=== PATIENT | male | born 1965 | race Caucasian/White ===

== ENCOUNTER 2018-10-03 14:51 | Emergency (ER) | payer MEDICARE ==
[~2018-10-03] VITALS: Ht 165.1 cm; Wt 75.0 kg
[~2018-10-03 14:51] MED LIST: CLIN-96 PO; DIVA-76 PO; DIVA-81 PO; LORA10TA65 PO; TRAZ-91 PO
[2018-10-03 15:10] VITALS: BP 130/79
[2018-10-03] MEDS ORDERED: ONDA4TAB6 PO (15:15)
[2018-10-03] MEDS ORDERED: CLIN150C2 PO (15:17)
[2018-10-03] MEDS ORDERED: HYDR-3965 PO (15:17)
[2018-10-03] MEDS ORDERED: ondansetron 4mg rapidly disintigrating tab PO ONE (15:25)
[2018-10-03] MEDS ORDERED: HYDROcodone/acetaminophen 10/325mg tab PO ONE (15:25)
== END 2018-10-03 15:46 | disposition home or self-care (01) ==
LOC: ER 14:52
DX: K04.7 Periapical abscess without sinus (principal); K00.7 Teething syndrome; J44.9 Chronic obstructive pulmonary disease, unspecified; G89.29 Other chronic pain; M54.9 Dorsalgia, unspecified; Z59.0 Homelessness; Z56.0 Unemployment, unspecified; Z88.6 Allergy status to analgesic agent; Z88.0 Allergy status to penicillin
CPT/HCPCS: 99283

== ENCOUNTER 2024-11-07 03:41 | Inpatient (IN) | payer MEDICAID, MEDICARE ==
[~2024-11-07] VITALS: Ht 165.1 cm; Wt 109.0 kg
[2024-11-07] VITALS (17 sets, daily range): BP systolic 140–170; BP diastolic 81–96; PULSE 67–89; RESP 1–19; TEMP 98.3–98.7; O2SAT 94–98
[~2024-11-07 03:41] MED LIST changes: -CLIN-96 PO; +CLIN-97 PO; +ONDA4TAB6 PO
--- NOTE | 2024-11-07 03:48 | Physician Documentation ---
History of Present Illness ~ Stated Complaint: SOB Time Seen by MD: 03:48 Primary Medical Doctor: Paige Yee Patient presents to the emergency room with shortness of breath. Patient states it has been gradually increasing to the point were he was completely out of breath just walking to go to the bathroom. No fevers. Has been using his inhaler with limited relief. Patient endorses methamphetamine abuse Medication Reconciliation Allergies: Coded Allergies: Penicillins (Verified Allergy, Severe, 02/01/13) aspirin (Verified Allergy, Mild, 02/20/15) Uncoded Allergies: sunflower seeds (Allergy, Intermediate, develops a rash, 09/22/12) Scheduled Clindamycin HCL* (Clindamycin HCL*), 1 CAP PO Q6H Divalproex Sodium DR* (Depakote DR*), 1,000 MG PO BID Divalproex Sodium ER* (Depakote ER*), 1,000 MG PO BID, (Reported) Loratadine (Claritin), 10 MG PO DAILY, (Reported) Trazodone Hcl* (Trazodone Hcl*), 100 MG PO HS, (Reported) Scheduled PRN Ondansetron Hcl (Zofran), 1 TAB PO Q6H PRN for nausea/vomiting Past Medical History Past Medical History: Seizures, Asthma, COPD, Chronic Back Pain Past Surgical History: other Other Past Surgical History: Hemmorhoid Alcohol Use: Occasionally Drug Use: methamphetamine Lives with: Family Lives In: Homeless Occupation: unemployed Review of Systems ROS All review of systems negative except as per HPI Physical Exam General Appearance General: Patient is awake, alert, oriented x4 in no acute distress Head: Normocephalic and atraumatic. Eyes: Conjunctival normal. EOMI. PERRL. ENT: Mucous membranes moist. Neck: Supple, trachea is midline. Chest: Clear to auscultation bilaterally without rales, rhonchi, with mild whee zing. There is no accessory muscle use or retractions. Cardiac: RRR without murmurs, gallops, or rubs. Progress Results/Orders Results/Orders Orders - KYE DE LEON MD Electrocardiogram (11/07/24 03:50) Chest,Single View (11/07/24 04:00) Monitor (11/07/24 03:50) Covid19 Binax Poc Result Entry (11/07/24 04:36) Ct Chest (11/07/24 04:45) Furosemide Inj (Lasix Inj) (11/07/24 05:45) Page Hospitalist (11/07/24 05:44) Fill Out Med Reconciliation (11/07/24 05:44) Completed Orders - KYE DE LEON MD Cbc/Diff (11/07/24 03:50) Chest,Single View (11/07/24 04:00) Methylprednisolone Sod Succ (Solumedrol (11/07/24 03:50) Hs Troponin I W Calculations (11/07/24 03:50) PBNP (11/07/24 03:50) BMP (11/07/24 03:50) Man Diff (11/07/24 04:00) Procalcitonin (11/07/24 04:36) Ct Chest (11/07/24 04:45) Medications Received in ER Medications (Trade) Dose Ordered Sig/[place] Route PRN Reason Start Time Stop Time Status Last Admin Dose Admin (SoluMEDROL 125mg inj) 125 mg ONCE ONCE IV 11/07/24 03:50 11/07/24 03:51 DC 11/07/24 04:12 125 MG Vital Signs 11/07/24 11/07/24 03:42 03:50 Temp 98.4 98.4 Pulse 90 90 Resp 17 17 B/P (MAP) 187/103 187/103 (131) Pulse Ox 99 99 O2 Flow Rate 0 0 Laboratory Tests Test 11/07/24 04:00 White Blood Count 11.9 H Red Blood Count 4.17 L Hemoglobin 12.0 L Hematocrit 36.3 L Mean Corpuscular Volume 87.0 Mean Corpuscular Hemoglobin 28.7 Mean Corpuscular Hemoglobin Concent 33.0 Red Cell Distribution Width 14.1 Platelet Count 451 H Mean Platelet Volume 6.4 L Neutrophils (%) (Auto) 65.3 Lymphocytes (%) (Auto) 15.8 L Monocytes (%) (Auto) 15.5 H Eosinophils (%) (Auto) 3.1 Basophils (%) (Auto) 0.3 Neutrophils # (Auto) 7.8 H Lymphocytes # (Auto) 1.9 Monocytes # (Auto) 1.8 H Eosinophils # (Auto) 0.4 Basophils # (Auto) 0.0 CBC Comment Differential Total Cells Counted 100 Neutrophils % (Manual) 69.0 Lymphocytes % (Manual) 15.0 L Monocytes % (Manual) 10.0 Eosinophils % (Manual) 6.0 Platelet Estimate Normal Red Blood Cell Morphology Normal Basophilic Stippling Sodium Level 141 Potassium Level 4.6 Chloride Level 108 H Carbon Dioxide Level 25.7 Anion Gap 7 L Blood Urea Nitrogen 72 H Creatinine 2.81 H Estimated GFR/1.73 m2 23 BUN/Creatinine Ratio 25.6 H Glucose Level 137 H Calcium Level 7.9 L Troponin I High Sensitivity 19 Pro-B-Type Natriuretic Peptide 7479 H Albumin 2.5 L Procalcitonin 0.19 Chemistry Comments EKG/XRAY/CT/US/VASC/MRI EKG : Additional Comment EKG interpreted by myself she was time of 0357, rate 85, sinus rhythm, normal axis, prolonged MA interval, nonspecific ST changes Chest X-Ray : Additional Comments Exam: CHEST,SINGLE VIEW CHEST RADIOGRAPH Indication: SOB Technique: Single frontal view of the chest was obtained Comparison: None FINDINGS: Lines and Tubes: None Lungs: Hazy bilateral opacities which may reflect pulmonary edema or pneumonia. Pleura: No effusion. No pneumothorax. Cardiomediastinal contours: Unremarkable Bones: No acute osseous abnormality. IMPRESSION: 1. Hazy bilateral pulmonary opacities which may reflect pulmonary edema or pneumonia. : Impression Exam: CT CHEST EXAM: CT Chest Without Intravenous Contrast CLINICAL INDICATION: sob TECHNIQUE: Axial computed tomography images of the chest without intravenous contrast. This CT exam was performed using one or more of the following dose reduction techniques: automated exposure control, adjustment of the mA and/or kV according to patient size, and/or use of iterative reconstruction technique. CONTRAST: COMPARISON: None FINDINGS: LUNGS AND PLEURAL SPACES: Bilateral pleural effusions, greater on the right. Lung emphysema / COPD. No consolidation. No pneumothorax. HEART: Unremarkable. No cardiomegaly. No significant pericardial effusion. No significant coronary artery calcifications. MEDIASTINUM: A few prominent mediastinal lymph nodes measuring up to 6 mm. BONES/JOINTS: Unremarkable. No acute fracture. No dislocation. SOFT TISSUES: Unremarkable. VASCULATURE: Unremarkable. No thoracic aortic aneurysm. LYMPH NODES: See above. LIVER: Fatty liver. OTHER FINDINGS: . IMPRESSION: Bilateral pleural effusions, greater on the right. Lung emphysema / COPD. Medical Decision Making Findings Patient presented to the emergency room with chief complaint of shortness of breath. Differentials include but are not limited to COPD exacerbation, pneumonia, CHF, pneumothorax therefore emergent labs and imaging indicated. Discrepancy between possible pneumonia versus CHF therefore CT scan performed which he was not show any pneumonia. Lasix initiated. New diagnosis of CHF Departure Admitted to Inpatient Unit: yes, to hospitalist Impression: Primary Impression: New onset of congestive heart failure Condition: Guarded Referrals: NO PRIMARY CARE PROVIDER (PCP) Signature Scribe Signature: No scribe Attestation: The note accurately reflects work and decisions made by me.Kye De Leon MD 11/07/24 05:49 KYE DE LEON MD Nov 07, 2024 03:48
[2024-11-07] MEDS: methylPREDNISolone sod succ 125mg/2ml vial IV ONE (04:12)
[2024-11-07 04:13] LABS: BASOPHILS % (AUTO) 0.3 % (0-1); EOSINOPHILS # (AUTO) 0.4 X10'3 (0-0.9); EOSINOPHILS % (AUTO) 3.1 % (0-6); HEMATOCRIT 36.3 % (42.0-52.0); LYMPHOCYTES # (AUTO) 1.9 X10'3 (1.1-4.8); LYMPHOCYTES % (AUTO) 15.8 % (21-51); MEAN CORPUSCULAR HEMOGLOBIN 28.7 PG (27.0-31.0); MEAN PLATELET VOLUME 6.4 FL (7.4-10.4); MONOCYTES # (AUTO) 1.8 X10'3 (0-0.9); MONOCYTES % (AUTO) 15.5 % (2-12); NEUTROPHILS # (AUTO) 7.8 X10'3 (1.8-7.7); NEUTROPHILS % (AUTO) 65.3 % (42-75); PLATELET COUNT 451 X10'3 (140-440); RED BLOOD COUNT 4.17 X10'6 (4.70-6.10); RED CELL DISTRIBUTION WIDTH 14.1 % (11.5-14.5); WHITE BLOOD COUNT 11.9 X10'3 (4.5-11.0)
[2024-11-07 04:34] LABS: ALBUMIN 2.5 G/DL (3.4-5.0); ANION GAP 7 (8-16); BLOOD UREA NITROGEN 72 MG/DL (7-18); BUN/CREATININE RATIO 25.6 (10.0-20.0); CALCIUM 7.9 MG/DL (8.5-10.1); CHLORIDE 108 MMOL/L (99-107); CREATININE 2.81 MG/DL (0.60-1.10); GLUCOSE 137 MG/DL (70-104); POTASSIUM 4.6 MMOL/L (3.5-5.1); PRO BRAIN NATRIURETIC PEPTIDE 7479 PG/ML (0-125); SODIUM 141 MMOL/L (135-145); TOTAL CARBON DIOXIDE 25.7 MMOL/L (24-32); eCRCL 24 ML/MIN; eGFR 23 ML/MIN
[2024-11-07 04:38] LABS: TOTAL CELLS COUNTED 100
[2024-11-07 04:39] LABS: PLATELET ESTIMATE NORMAL
--- NOTE | 2024-11-07 04:41 | RADIOLOGY REPORT ---
CHEST RADIOGRAPH Indication: SOB Technique: Single frontal view of the chest was obtained Comparison: None FINDINGS: Lines and Tubes: None Lungs: Hazy bilateral opacities which may reflect pulmonary edema or pneumonia. Pleura: No effusion. No pneumothorax. Cardiomediastinal contours: Unremarkable Bones: No acute osseous abnormality. IMPRESSION: 1. Hazy bilateral pulmonary opacities which may reflect pulmonary edema or pneumonia.
--- NOTE | 2024-11-07 05:31 | RADIOLOGY REPORT ---
EXAM: CT Chest Without Intravenous Contrast CLINICAL INDICATION: sob TECHNIQUE: Axial computed tomography images of the chest without intravenous contrast. This CT exam was performed using one or more of the following dose reduction techniques: automated exposure cont rol, adjustment of the mA and/or kV according to patient size, and/or use of iterative reconstruction technique. CONTRAST: COMPARISON: None FINDINGS: LUNGS AND PLEURAL SPACES: Bilateral pleural effusions, greater on the right. Lung emphysema / COPD . No consolidation. No pneumothorax. HEART: Unremarkable. No cardiomegaly. No significant pericardial effusion. No significant lux ry artery calcifications. MEDIASTINUM: A few prominent mediastinal lymph nodes measuring up to 6 mm. BONES/JOINTS: Unremarkable. No acute fracture. No dislocation. SOFT TISSUES: Unremarkable. VASCULATURE: Unremarkable. No thoracic aortic aneurysm. LYMPH NODES: See above. LIVER: Fatty liver. OTHER FINDINGS: . IMPRESSION: Bilateral pleural effusions, greater on the right. Lung emphysema / COPD.
[2024-11-07] MEDS: furosemide 10 MG/1 ML 10ml inj IV ONE (05:52)
--- NOTE | 2024-11-07 07:26 | ELECTROCARDIOGRAPH REPORT ---
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 Thomas Orozco Measurements Intervals [place] Rate: 85 P: 207 WY: 242 QRS: 58 QRSD: 117 T: 30 QT: 369 QTc: 439 Interpretive Statements Sinus or ectopic atrial rhythm Prolonged [place] interval Consider left atrial enlargement Incomplete right bundle branch block Probable inferior infarct, acute ST elevation, consider anterolateral injury Baseline wander in lead(s) I,II,aVR,aVL,aVF Electronically Signed On 11-08-2024 9:27:[address] Thomas Orozco Please click the below link to view image of tracing.
[2024-11-07] MEDS: nitroGLYCERIN 0.4mg SUBLingual tab SL PRN (07:32)
[2024-11-07] MEDS ORDERED: acetaminophen 650mg rectal suppository RC PRN (07:40)
[2024-11-07] MEDS ORDERED: bisacodyl 10mg suppository rectal RC PRN (07:40)
[2024-11-07] MEDS ORDERED: ondansetron 4mg rapidly disintigrating tab PO PRN (07:40)
[2024-11-07] MEDS ORDERED: diphenhydrAMINE 50 mg/ml inj IV PRN (07:40)
[2024-11-07] MEDS ORDERED: diphenhydrAMINE 25mg capsule PO PRN (07:40)
[2024-11-07] MEDS ORDERED: metoclopramide 5 mg/ml inj IV PRN (07:40)
[2024-11-07] MEDS ORDERED: mag hydrox/Alum hydrox/simeth 30ml oral suspension PO PRN (07:40)
[2024-11-07] MEDS ORDERED: acetaminophen 325mg tablet PO PRN (07:40)
[2024-11-07] MEDS ORDERED: magnesium hydroxide 30ml (MOM) UD suspension PO PRN (07:40)
[2024-11-07] MEDS ORDERED: ondansetron/PF 4mg/2ml inj IV PRN (07:40)
[2024-11-07] MEDS ORDERED: morphine 2 MG/ML inj. syringe IV PRN (07:40)
[2024-11-07] MEDS: normal saline 1000ml 1,000 ML IV SCH (07:40)
[2024-11-07] MEDS ORDERED: CefTRIAXone/D5W-Rocephin 1gm 50 ML IV SCH (08:00)
[2024-11-07] MEDS: nitroGLYCERIN-Tridil 50MG/D5W 250 ML IV SCH ×2 (08:05→08:46)
[2024-11-07 08:25] LABS: BILIRUBIN,URINE NEGATIVE (Neg); CLARITY,URINE CLOUDY (Clear); COLOR,URINE YELLOW (Yellow); GLUCOSE, URINE NEGATIVE (Neg); KETONES,URINE NEGATIVE (Neg); LEUKOCYTE ESTERASE ,URINE MODERATE (Neg); OCCULT BLOOD,URINE LARGE (Neg); PROTEIN,URINE >=300 mg/dl (Neg); UROBILINOGEN,URINE 0.2 E.U/dL (0.2-1.0)
[2024-11-07 08:30] LABS: APTT 27 SECONDS (22-32); D-DIMER 3.68 MG/L FEU (0-0.50); INR 1.1 INR; PROTHROMBIN TIME 10.9 SECONDS (9.0-12.0)
[2024-11-07] MEDS: COMMUNICATION ORDER 1 EA MISC MC ONE (08:33)
[2024-11-07] MEDS: ipratropium/albuterol 3ml nebule IH PRN (08:35)
[2024-11-07 08:38] LABS: MAGNESIUM 2.7 MG/DL (1.5-2.4)
[2024-11-07 08:44] LABS: UA COLLECTION TYPE VOIDED
[2024-11-07] MEDS: docusate sod 100mg capsule PO SCH (08:44)
[2024-11-07] MEDS: heparin, porcine 5000 units/ml vial SQ SCH (08:44)
[2024-11-07] MEDS: azithromycin/NS 500mg/250ml 250 ML IV SCH (08:45)
[2024-11-07] MEDS: LORazepam 1 MG tablet PO SCH (08:45)
[2024-11-07 08:48] LABS: NITRITES, URINE NEGATIVE (Neg)
[2024-11-07 08:48] LABS: HEMOGLOBIN A1C 7.1 % (4.5-6.2)
[2024-11-07 08:49] LABS: BACTERIA,URINE 2+ /HPF (Neg); RBC,URINE TNTC /HPF (0-2); WBC,URINE TNTC /HPF (0-4)
[2024-11-07 08:56] LABS: SQUAMOUS EPITHELIAL CELL,UR NONE SEEN /LPF (FEW)
[2024-11-07] MEDS: furosemide 10 MG/1 ML 10ml inj IV SCH (09:09)
[2024-11-07] MEDS ORDERED: DEXTROSE 15 GM of carb/4 tabs (each vial/BOTTLE has 4 tablets) PO PRN ×2 (12:45)
[2024-11-07] MEDS ORDERED: glucagon, human recombinant 1mg kit SUBCUT PRN (12:45)
[2024-11-07] MEDS ORDERED: dextrose 50%-water 50ml dispensing syringe IV PRN ×2 (12:45)
--- NOTE | 2024-11-07 13:56 | HISTORY AND PHYSICAL ---
History & Physical Providers to CC ~ chief complaint, shortness of breath History of Present Illness Reason for Admit\\Complaint: As above History of Present Illness This is a 59 years old white male with history of multiple medical problems including seizure disorder COPD, hypoalbuminemia, chronic pain syndrome secondary to lumbar degenerative disc disease, history of homelessness, chronic kidney disease, diabetes mellitus type 2, chronic tobacco abuse including currently chronic amphetamine abuse including currently, history of hypertension poor control, CHF, morbid obesity BMI 40, multiple allergies, anemia hemoglobin 12, presented today to emergency department chief complaint shortness of breath, in addition Patient presents to the emergency room with shortness of breath. Patient states it has been gradually increasing to the point were he was completely out of breath just walking to go to the bathroom. No fevers. Has been using his inhaler with limited relief. Patient endorses methamphetamine abuse, in emergency department he was evaluated by physician was diagnosed with CHF in exacerbation, morbid obesity, hypoxia, and decision was made to admit patient for further evaluation and treatment, no additional complaint or concern. Allergies: Coded Allergies: Penicillins (Verified Allergy, Severe, PT STATES "WILL ", 11/07/24) aspirin (Verified Allergy, Mild, 02/20/15) Uncoded Allergies: sunflower seeds (Allergy, Intermediate, develops a rash, 09/22/12) Active prescriptions I reviewed reconciled Home Medications Home Medications Active Zofran (Ondansetron Hcl) 4 Mg Tablet 1 Tab PO Q6H PRN Clindamycin HCL* (Clindamycin HCl) 300 Mg Capsule 1 Cap PO Q6H Depakote DR* (Divalproex Sodium) 500 Mg Tablet.dr 1,000 Mg PO BID Reported Claritin (Loratadine) 10 Mg Tablet 10 Mg PO DAILY Trazodone Hcl* (Trazodone HCl) 100 Mg Tablet 100 Mg PO HS Past Medical History Past Medical History As in HPI Past Surgical History Surgical History Comment As in HPI Past Social History Social History Comment Positive for chronic tobacco amphetamine abuse including currently, deny alcohol use, has history of homelessness, Health Maintenance Health Maintenance Noncontributory ROS ROS Constitutional : no fever , no chills, or weakness. No diaphoresis. Allergic/Immunologic, no lymphadenopathy, no hives, no skin eruptions. Eyes, no recent visual changes, no eye pain, no photophobia. Ears, nose, mouth, throat, no sore throat, no nosebleed, no ear pain. Cardiovascular, no palpitations, skipped beats, chest pain, positive for bilateral lower extremity peripheral edema, Respiratory, has dyspnea, orthopnea, cough, no hemoptysis, chest wall pain. Gastrointestinal, no abdominal pain, nausea, vomiting, constipation or diarrhea. : no dysuria, hematuria, pelvic pain, urethral d/c. Endocrine, no polyuria, polydipsia, recent unintentional weight gain or loss. Hematologic/Lymphatic, no petechiae, no enlarged lymph nodes, no bone pain. Integumentary, no rash, no skin lesions, Musculoskeletal, no muscle aches, or pain, no muscle cramps, no recent change in gait Neurological, no dizziness, no headache, no syncope, no paresthesia. Psychiatric, no delusions, visual hallucinations, or hearing hallucinations. ROS - in rest is as in HPI. Exam Vitals: Vital Signs Date Time Temp Pulse Resp B/P (MAP) Pulse Ox O2 Delivery O2 Flow Rate FiO2 11/07/24 11:22 75 11/07/24 11:15 98.7 15 156/81 (106) 97 Nasal Cannula 2.5 11/07/24 10:09 28 Vital signs, stable ,afebrile. Pulse Oximetry reflects adequate oxygenation on 2 L oxygen nasal cannula. BMI is 40, weight 109 kg General: well developed, well nourished. Awake , alert, and oriented x4, resting comfortably in the bed, in no acute distress . Skin: Warm, dry, no pallor, no rash or petechiae. HEENT: Atraumatic, normocephalic, EOMI, anicteric sclera B; pink conjunctiva; PERRLA, normal oropharynx, moist oral and nasal mucosa. Tympanic membrane , nose , throat clear. Neck: Trachea midline. Supple, full range of motion, no JVD, bruit , hepatojugular reflex , lymphadenopathy or masses, or other lesions Cardiac: Regular rhythm, regular rate no murmurs, rubs, or gallops. Normal S1 and S2, no S3 noticed. PMI is normal. Respiratory: Equal breath sounds bilaterally, no tachypnea; lungs clear to auscultation bilaterally, ; positive for scattered bilateral wheezing , no rub or rales, or crackles. Chest wall is symmetric and without deformity. No signs of trauma. Chest wall is nontender. No signs of respiratory distress. Resonance is normal upon percussion bilaterally. Gastrointestinal: Abdomen symmetric, non-distended, soft, non-tender, normal bowel sounds x4 quadrant, normoactive, no hepatosplenomegaly , no masses , no bruit, no flank pain bilaterally. No voluntary guarding, rebound, or rigidity. No tenderness to percussion. No pulsatile masses. Equal femoral pulses. No Giraldo's sign or McBurney point tenderness. Back; no CVA tenderness bilaterally, no deformities. Neck and back are without deformity as well. No tenderness noted on palpation of the spinous processes. Spinous processes are midline. Cervical, thoracic, and lumbar paraspinal muscles are not tender and are without spasm. : normal external genitalia, without lesions, swelling, masses or tenderness. Musculoskeletal: Extremities, normal range of motion, non-tender, muscle strength 5/5 x 4. Negative Homans signs bilaterally on lower extremity. Distal pulses full symmetrical, no clubbing, cyanosis; positive for bilateral lower extremity plus four edema up to the thighs Neurological: Speech is clear, alert, and oriented x 4. No motor or sensory deficit, deep tendon reflexes normal, cerebellar intact. Cranial nerves II-XII intact. Psych: Alert and or appropriate, normal affect. Vascular: Good distal pulses, which are equal x4; capillary refill less than 2 seconds. Lymphatic, no lymphadenopathy. Diagnostic Data Last Recorded Lab Results: 11/07/24 0400 11/07/24 0400 Diagnostic Data: Laboratory Tests Test 11/07/24 08:00 Prothrombin Time 10.9 SECONDS (9.0-12.0) INR International Normalized Ratio 1.1 INR Activated Partial Thromboplast Time 27 SECONDS (22-32) D-Dimer 3.68 MG/L FEU (0-0.50) H D-Dimer Comment Coagulation Comments Advance Care Planning Advanced Care plannin - 30 Minutes Additional Plan Assessment Hypertensive emergency, blood pressure on admission 187 over 103 Chronic amphetamine abuse including currently Acute amphetamine intoxication Chronic CHF diastolic in exacerbation Acute respiratory failure secondary to hypoxia Bilateral pleural effusion right more than left Chronic tobacco abuse including currently Anemia hemoglobin 12 Multiple drug allergy Acute Renal failure COPD in exacerbation Chronic pain syndrome secondary to low back degenerative disc disease Diabetes mellitus type 2 poor control UTI Plan Serial troponin EKG IV Lasix, nitroglycerin infusion, steroids, antibiotics SVN Hannahb, incentive spirometry Oxygen support therapy Additional lab work pending Consulted for 5 minutes to stop using illicit drugs and tobacco patient agrees started to nicotine patch Echocardiography pending Hyperglycemia sliding scale V/Q test pending I reconciled home medications DVT gastropathy prophylaxis addressed Sepsis Screening Reassessment Date: Nov 07, 2024 Date of Service: Nov 07, 2024 Billing Provider: BE NIX MD Common Visit Codes: 52810-[id number] INP/OBS CARE (HIGH) Secondary Visit Codes: 15565-TDSAW CHNG SMOKING 3-10M, [id number] CARE PLAN 30 MINUTES BE NIX MD Nov 07, 2024 13:56
[2024-11-07 14:10] LABS: THYROID STIMULATING HORMONE 1.14 ulU/ml (0.34-4.50)
[2024-11-07 14:51] LABS: VALPROATE < 3.0 UG/ML (50-100)
[2024-11-07] MEDS ORDERED: ONDA-243 PO (15:13)
[2024-11-07] MEDS ORDERED: CLIN-97 PO (15:13)
[2024-11-07] MEDS ORDERED: DIVA-76 PO (15:13)
[2024-11-07] MEDS: ciprofloxacin 250mg tablet PO SCH (15:38)
[2024-11-07] MEDS: HYDROcodone/acetaminophen 5mg/325mg tablet PO PRN (15:54)
[2024-11-07] MEDS: INSULIN LISPRO 100 UNIT/ML INSULN.PEN MULTI-DOSE SQ SCH (17:28)
[2024-11-07] MEDS: morphine 2 MG/ML inj. syringe IV PRN (17:29)
--- NOTE | 2024-11-07 17:55 | RADIOLOGY REPORT ---
EXAM: NM NM LUNGS HISTORY: pe COMPARISON: None TECHNIQUE: Following the administration of the ventilation agent, standard projections of the lungs were acquired. The same images were repeated after administration of the perfusion agent. Findings: Ventilation images demonstrate homogenous distribution of radiotracer throughout both lungs. Perfusion images demonstrate homogeneous distribution of radiotracer throughout both lungs. No periph eral wedge-shaped moderate or large subsegmental or segmental mismatched perfusion defects to suggest acute pulmonary embolism. Impression: 1. Based on PIOPED criteria, low probability for pulmonary embolism.
--- NOTE | 2024-11-07 18:52 | CARDIOLOGY REPORT ---
APPROVED REPORT EXAM: Comprehensive 2D, Doppler, and color-flow Echocardiogram. 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 158.6 cm/s AoV VTI 31.7 cm AO Peak GR. 10.1 mmHg AO Mean GR. 5 mmHg LVOT VTI 27.08 cm LVOT Peak Donny. 142.9 cm/s BANDAR(VTI)/BSA 3.39 cm2/m2 BANDAR (VTI) 3.39 cm2 Mitral Valve MV E Velocity 111.2 cm/s MV Peak Gr. 6 mmHg MV DECEL TIME 162 ms MV A Velocity 93.0 cm/s MV PHT 48 ms E/A Ratio 1.2 MVA (PHT) 4.58 cm2 MV AAdn379.1 cm/s TDI Medial E' P. V 10.76 cm/s E/Medial E' 10.3 Tricuspid Valve TR P. Velocity 143 cm/s TR Peak Gr. 8 mmHg Pulmonary Vein S1 Velocity 100.9 cm/s D2 Velocity 68.5 cm/s PVa Wdelhkrd89.9 cm/s PVa [id number] msec LEFT VENTRICLE Mildly increased LV size with normal wall thickness. Overall systolic function is mildly reduced. LVE F is 50-55%. RIGHT VENTRICLE RV is mildly increased in size with adequate function. ATRIA Left atrium is moderately dilated. AORTIC VALVE Trileaflet AV appears mildly sclerotic without stenosis or insufficiency. MITRAL VALVE Mild MV annular calcification without stenosis. Mild regurgitation. TRICUSPID VALVE TV appears structurally normal with trace regurgitation. PULMONIC VALVE Normal PV without stenosis, physiologic insufficiency. GREAT VESSELS Aortic root is normal in size. Ascending aorta is normal in size. PERICARDIUM Normal pericardium. No effusion. Other Information Study Quality: Adequate, TDS arch. Conclusion Mildly increased LV size with normal wall thickness. Overall systolic function is mildly reduced. LVE F is 50-55%. RV is mildly increased in size with adequate function. Left atrium is moderately dilated. Trileaflet AV appears mildly sclerotic without stenosis or insufficiency. Mild MV annular calcification without stenosis. Mild regurgitation. TV appears structurally normal with trace regurgitation. Normal pericardium. No effusion.
[2024-11-07] MEDS: insulin glargine (Lantus) pen - multi-dose SQ SCH (20:28)
[2024-11-07] MEDS: HYDROcodone/acetaminophen 10/325mg tab PO PRN (20:46)
[2024-11-07] MEDS ORDERED: temazepam 15mg capsule PO PRN (21:00)
[2024-11-08] VITALS (19 sets, daily range): BP systolic 145–183; BP diastolic 80–107; PULSE 67–96; RESP 11–20; TEMP 97–98.9; O2SAT 91–98
[2024-11-08 06:34] LABS: ALANINE AMINOTRANSFERASE 37 U/L (12-78); ALBUMIN 2.2 G/DL (3.4-5.0); ALBUMIN/GLOBULIN RATIO 0.6 (1.1-1.5); ALKALINE PHOSPHATASE 98 IU/L (46-116); ANION GAP 7 (8-16); ASPARTATE AMINO TRANSFERASE 18 U/L (10-37); BILIRUBIN,TOTAL 0.3 MG/DL (0.1-1.0); BLOOD UREA NITROGEN 85 MG/DL (7-18); BUN/CREATININE RATIO 28.9 (10.0-20.0); CHLORIDE 106 MMOL/L (99-107); CHOL/HDL RATIO 4.2 (0.00-4.99); CHOLESTEROL 144 MG/DL (0-200); CREATININE 2.94 MG/DL (0.60-1.10); GLUCOSE 135 MG/DL (70-104); HDL CHOLESTEROL 34 MG/DL (35-60); LDL CHOLESTEROL 94 MG/DL (50-100); POTASSIUM 5.7 MMOL/L (3.5-5.1); SODIUM 137 MMOL/L (135-145); TOTAL CARBON DIOXIDE 24.5 MMOL/L (24-32); TOTAL PROTEIN 5.8 G/DL (6.4-8.2); TRIGLYCERIDES 94 MG/DL (20-135); eCRCL 23 ML/MIN; eGFR 22 ML/MIN
[2024-11-08 06:36] LABS: BASOPHILS % (AUTO) 0.1 % (0-1); EOSINOPHILS % (AUTO) 0 % (0-6); HEMATOCRIT 33.6 % (42.0-52.0); HEMOGLOBIN 10.8 g/dl (14.0-17.9); LYMPHOCYTES # (AUTO) 1.6 X10'3 (1.1-4.8); LYMPHOCYTES % (AUTO) 7.9 % (21-51); MEAN CORPUSCULAR HEMOGLOBIN 28.1 PG (27.0-31.0); MEAN CORPUSCULAR HGB CONC 32.3 g/dL (33.0-36.5); MEAN CORPUSCULAR VOLUME 86.9 FL (78-98); MEAN PLATELET VOLUME 6.8 FL (7.4-10.4); MONOCYTES # (AUTO) 1.9 X10'3 (0-0.9); NEUTROPHILS # (AUTO) 17.2 X10'3 (1.8-7.7); PLATELET COUNT 449 X10'3 (140-440); RED BLOOD COUNT 3.86 X10'6 (4.70-6.10); RED CELL DISTRIBUTION WIDTH 13.9 % (11.5-14.5); WHITE BLOOD COUNT 20.7 X10'3 (4.5-11.0)
[2024-11-08] MEDS: pantoprazole 40mg Tablet.DR PO SCH (07:23)
[2024-11-08] MEDS: nicotine 21mg patch - 24 hr TD SCH (07:24)
--- NOTE | 2024-11-08 17:08 | PROGRESS NOTE ---
Daily Progress Note Providers to CC Chief complaint, shortness of breath, bilateral lower extremity edema still present ~ Central Line/PICC still needed: No Zavaleta-Non Protocol Zavaleta Indications Met/Not Met: F/C Indications Not Met Antibiotic Timeout Antibiotic Ordered?: Yes MRSA Education MRSA Education Provided to pt: Yes Subjective As above Objective Vital Signs Date Time Temp Pulse Resp B/P (MAP) Pulse Ox O2 Delivery O2 Flow Rate FiO2 11/08/24 16:06 88 20 Nasal Cannula 3.0 11/08/24 15:58 94 32 11/08/24 05:00 161/82 (108) 11/08/24 02:00 98.1 Vital signs, stable ,afebrile. Pulse Oximetry reflects adequate oxygenation. General: well developed, well nourished. Awake , alert, and oriented x4, resting comfortably in the bed, in no acute distress . Skin: Warm, dry, no pallor, no rash or petechiae. HEENT: Atraumatic, normocephalic, EOMI, anicteric sclera B; pink conjunctiva; PERRLA, normal oropharynx, moist oral and nasal mucosa. Tympanic membrane , nose , throat clear. Neck: Trachea midline. Supple, full range of motion, no JVD, bruit , hepatojugular reflex , lymphadenopathy or masses, or other lesions Cardiac: Regular rhythm, regular rate no murmurs, rubs, or gallops. Normal S1 and S2, no S3 noticed. PMI is normal. Respiratory: Equal breath sounds bilaterally, no tachypnea; lungs clear to auscultation bilaterally, no wheezing ,rub or rales, or crackles. Chest wall is symmetric and without deformity. No signs of trauma. Chest wall is nontender. No signs of respiratory distress. Resonance is normal upon percussion bilaterally. Gastrointestinal: Abdomen symmetric, non-distended, soft, non-tender, normal bowel sounds x4 quadrant, normoactive, no hepatosplenomegaly , no masses , no bruit, no flank pain bilaterally. No voluntary guarding, rebound, or rigidity. No tenderness to percussion. No pulsatile masses. Equal femoral pulses. No Giraldo's sign or McBurney point tenderness. Back; no CVA tenderness bilaterally, no deformities. Neck and back are without deformity as well. No tenderness noted on palpation of the spinous processes. Spinous processes are midline. Cervical, thoracic, and lumbar paraspinal muscles are not tender and are without spasm. : normal external genitalia, without lesions, swelling, masses or tenderness. Musculoskeletal: Extremities, normal range of motion, non-tender, muscle strength 5/5 x 4. Negative Homans signs bilaterally on lower extremity. Distal pulses full symmetrical, no clubbing, cyanosis , bilateral lower extremity plus four edema up to the thigh Neurological: Speech is clear, alert, and oriented x 4. No motor or sensory deficit, deep tendon reflexes normal, cerebellar intact. Cranial nerves II-XII intact. Psych: Alert and or appropriate, normal affect. Vascular: Good distal pulses, which are equal x4; capillary refill less than 2 seconds. Lymphatic, no lymphadenopathy. Result Diagram: 11/08/24 0557 11/08/24 0557 Coagulation Studies Laboratory Tests Test 11/07/24 08:00 Prothrombin Time 10.9 SECONDS (9.0-12.0) INR International Normalized Ratio 1.1 INR Activated Partial Thromboplast Time 27 SECONDS (22-32) D-Dimer 3.68 MG/L FEU (0-0.50) H D-Dimer Comment Coagulation Comments Problem\Assessment\Plan Assessment Hypertensive emergency, blood pressure on admission 187 over 103 Hyperkalemia Chronic amphetamine abuse including currently Acute amphetamine intoxication Chronic CHF diastolic in exacerbation ejection fraction 52% Acute respiratory failure secondary to hypoxia Bilateral pleural effusion right more than left Chronic tobacco abuse including currently Anemia hemoglobin 12 Multiple drug allergy Acute Renal failure COPD in exacerbation Chronic pain syndrome secondary to low back degenerative disc disease Diabetes mellitus type 2 poor control UTI Plan Serial troponin EKG IV Lasix, nitroglycerin infusion, steroids, antibiotics SVN DuoNeb, incentive spirometry Oxygen support therapy Additional lab work pending Correct electrolytes Consulted for 5 minutes to stop using illicit drugs and tobacco patient agrees started to nicotine patch Echocardiography completed Hyperglycemia sliding scale V/Q test completed I reconciled home medications DVT gastropathy prophylaxis addressed Sepsis Screening Reassessment Date: Nov 08, 2024 Date of Service: Nov 08, 2024 Billing Provider: BE NIX MD Common Visit Codes: [id number] INP/OBS CARE(HIGH) BE NIX MD Nov 08, 2024 17:08
[2024-11-08] MEDS ORDERED: CALCIUM GLUC 1gm/50ml NACL,iso 50 ML IV PRN (17:10)
[2024-11-08] MEDS: JUVEN Shake w/Arg/Glut/Ca2+Bmb (Juven 19.3gm) pkt 240ml PO SCH (17:30)
[2024-11-08] MEDS: sodium polystyrene sulfonate 15gm/60ml oral suspension PO ONE (18:38)
[2024-11-08] MEDS: sodium bicarbonate (8.4%) 1 mEq/ml syringe IV ONE (18:39)
[2024-11-08] MEDS: dextrose 50%-water 50ml dispensing syringe IV ONE (18:39)
[2024-11-08] MEDS: insulin regular, human 10 units/0.1 ml syringe IV ONE (18:40)
[2024-11-08] MEDS: SODIUM ZIRCONIUM CYCLOSILICATE 10 GM POWD.PACK PO ONE (18:42)
--- NOTE | 2024-11-08 19:46 | RADIOLOGY REPORT ---
Clinical History sepsis Comparison None Technique: All CT scans at this medical facility are performed using dose modulation techniques as appropriate t o a performed exam including the following: Automated exposure control was utilized; adjustment of th e mA and/or kV according to patient size; and use of iterative reconstruction technique. All CT studies are reported to the Dose Index Registry of the [employer]. Without Contrast Radiation Dose: CTDI (mGy): 36.52; DLP (mGy-cm): 1749.61 SHANNON BACH, [id number] TECHNIQUE: Contiguous axial CT images of the abdomen and pelvis were obtained from the domes of the diaphragm to the level of the pubic symphysis. Coronal and sagittal reformatted images were generated. FINDINGS: LUNG BASES: There is small bilateral pleural effusions with adjacent compressive atelectasis. Septal thickening seen at the lung bases. HEPATOBILIARY: Unenhanced liver is unremarkable. Gallbladder is contracted. SPLEEN: Unremarkable. PANCREAS: Unremarkable. ADRENAL GLANDS: Unremarkable. KIDNEYS: No hydronephrosis or obstructive uropathy. PERITONEUM/MESENTERY/BOWEL: No evidence of bowel obstruction. No bowel wall thickening or inflammato ry changes. No ascites. No free air. Normal appendix. Scattered colonic diverticulosis without ev idence of diverticulitis. ABDOMINOPELVIC NODES: No adenopathy. PELVIC ORGANS: Decompressed bladder appear unremarkable prostate. ABDOMINAL AORTA: Atherosclerosis. No aneurysm. BONES: No suspicious osseous lesions. Degenerative changes of the lower lumbar spine. SOFT TISSUES: Unremarkable. OTHER: None. IMPRESSION: Normal appendix. Scattered colonic diverticulosis without evidence of diverticulitis. Small bilateral pleural effusions with adjacent compressive atelectasis. Septal thickening seen at t he lung bases. This report was electronically signed by Stevenson Haywood MD on 11/08/2024 7:44:09 PM.
[2024-11-08] MEDS: vancomycin/NS 1 GM ADD-VANTAGE 250 ML IV SCH (20:53)
[2024-11-08] MEDS: labetalol 20mg/4ml (5mg/ml) syringe IV PRN (23:42)
[2024-11-08 23:43] LABS: ABG BASE EXCESS -3.4 mmol/L (-2.0-3.0); ABG HCO3 22.5 mmol/L (21.0-28.0); ABG OXYGEN SATURATION 95.6 % (94.0-98.0); ABG PCO2 (T) 45.7 mmHg (35.0-48.0); ABG PH (T) 7.315 (7.350-7.450); ABG PO2 (T) 83.5 mmHg (83.0-108.0); ALLEN'S TEST POSITIVE; FCOHb 0.5 % (0.5-1.5); FHHb 4.4 % (0.0-5.0); FMetHb 0.3 % (0.0-1.5); FO2Hb 94.8 % (94.0-98.0); MODE NASAL CANNULA; PATIENT TEMPERATURE 37.8; RESPIRATORY RATE 20 b/min; TOTAL HEMOGLOBIN 11.9 G/dl (13.5-17.5)
[2024-11-09] VITALS (19 sets, daily range): BP systolic 138–192; BP diastolic 70–108; PULSE 77–100; RESP 12–32; TEMP 97.1–98.5; O2SAT 92–100
[2024-11-09] MEDS: furosemide 20 MG/2 ML vial IV SCH
--- NOTE | 2024-11-09 00:44 | RADIOLOGY REPORT ---
Clinical History sob Comparison CT CHEST, CXR on 11/07/2024, 2 images. Technique: A single AP/PA chest radiograph was provided for review. Without Contrast SHANNON BACH, [id number] FINDINGS: Lungs: Hypoexpanded lungs without pneumothorax. There is no significant pleural effusion. Heart: Enlarged. Mediastinum: Within normal limits. Vasculature: Pulmonary edema. Tubes/lines: None. Osseous structures: No evidence for acute fracture. IMPRESSION: Low lung volumes. Cardiomegaly. Pulmonary edema. This report was electronically signed by Bob Fontaine MD on 11/09/2024 12:41:51 AM.
[2024-11-09] MEDS: losartan 25mg tablet PO ONE (01:15)
[2024-11-09] MEDS: labetalol 20mg/4ml (5mg/ml) syringe IV ONE (06:08)
[2024-11-09 06:38] LABS: BASOPHILS % (AUTO) 0.1 % (0-1); EOSINOPHILS # (AUTO) 0.2 X10'3 (0-0.9); HEMATOCRIT 34.2 % (42.0-52.0); HEMOGLOBIN 11.3 g/dl (14.0-17.9); LYMPHOCYTES # (AUTO) 2.2 X10'3 (1.1-4.8); LYMPHOCYTES % (AUTO) 13.8 % (21-51); MEAN CORPUSCULAR HEMOGLOBIN 28.7 PG (27.0-31.0); MEAN PLATELET VOLUME 6.5 FL (7.4-10.4); MONOCYTES % (AUTO) 13.1 % (2-12); NEUTROPHILS # (AUTO) 11.3 X10'3 (1.8-7.7); PLATELET COUNT 473 X10'3 (140-440); RED BLOOD COUNT 3.94 X10'6 (4.70-6.10); RED CELL DISTRIBUTION WIDTH 14.4 % (11.5-14.5); WHITE BLOOD COUNT 15.7 X10'3 (4.5-11.0)
[2024-11-09 06:58] LABS: ALBUMIN 2.3 G/DL (3.4-5.0); ANION GAP 8 (8-16); BILIRUBIN,TOTAL 0.2 MG/DL (0.1-1.0); BLOOD UREA NITROGEN 101 MG/DL (7-18); BUN/CREATININE RATIO 39.8 (10.0-20.0); CALCIUM 8.1 MG/DL (8.5-10.1); CHLORIDE 105 MMOL/L (99-107); CREATININE 2.54 MG/DL (0.60-1.10); GLUCOSE 136 MG/DL (70-104); POTASSIUM 5.2 MMOL/L (3.5-5.1); SODIUM 138 MMOL/L (135-145); TOTAL CARBON DIOXIDE 24.6 MMOL/L (24-32); TOTAL PROTEIN 6.2 G/DL (6.4-8.2); eCRCL 27 ML/MIN; eGFR 26 ML/MIN
[2024-11-09 06:59] LABS: ALANINE AMINOTRANSFERASE 37 U/L (12-78); ALBUMIN/GLOBULIN RATIO 0.6 (1.1-1.5); ALKALINE PHOSPHATASE 101 IU/L (46-116); ASPARTATE AMINO TRANSFERASE 17 U/L (10-37)
[2024-11-09] MEDS: amLODIPine 5mg tablet PO SCH (07:27)
[2024-11-09] MEDS: losartan 25mg tablet PO SCH (07:27)
[2024-11-09] MEDS ORDERED: VANCOMYCIN/H2O 1.25G/250mL PB 250 ML IV SCH (08:00)
[2024-11-09] MEDS ORDERED: niCARDipine-NS 40mg/200ml IVPB 200 ML IV SCH (08:30)
[2024-11-09] MEDS: albuterol 2.5 MG/3 ML nebule NEB ONE (09:04)
[2024-11-09 09:37] LABS: ABG BASE EXCESS -3.8 mmol/L (-2.0-3.0); ABG HCO3 22.4 mmol/L (21.0-28.0); ABG OXYGEN SATURATION 98.2 % (94.0-98.0); ABG PCO2 (T) 44.8 mmHg (35.0-48.0); ABG PH (T) 7.316 (7.350-7.450); ABG PO2 (T) 112.7 mmHg (83.0-108.0); ALLEN'S TEST POSITIVE; FCOHb 0.4 % (0.5-1.5); FHHb 1.8 % (0.0-5.0); FMetHb 0.3 % (0.0-1.5); FO2Hb 97.5 % (94.0-98.0); MODE MASK - BIPAP; RESPIRATORY RATE 12 b/min; TOTAL HEMOGLOBIN 11.9 G/dl (13.5-17.5)
--- NOTE | 2024-11-09 10:45 | CONSULTATION REPORT - RESIDENT ---
Consult Providers to CC Resident Creating Document: DMITRI RUIZ KASSANDRA RAHMAN History of Present Illness Reason for Admit\\Complaint: Acute hypoxemic respiratory failure, CACHORRO on CKD History of Present Illness Nephrology consult note: At the time of examination the patient was in severe respiratory distress requiring BiPAP and is not able to provide history of present illness and hence the HPI is mostly derived from the patient's records and the primary team's sign-out. The Nephrology team has been consulted in view of the patient's worsening renal function secondary to CACHORRO. 59 years old male with past medical history of seizures, COPD, chronic pain syndrome, type 2 diabetes mellitus, polysubstance use including methamphetamine abuse, congestive heart failure, morbid obesity , hypertension presented to the ED with chief complaint of shortness of breath that has been progressively worsening with the past few days. He reported that the shortness of breath has become so severe that he is not able walk up to his bathroom without feeling significantly short of breath. The patient had minimal relief with the inhaler at home. He also has active smoking and methamphetamine use history. Allergies: Coded Allergies: Penicillins (Verified Allergy, Severe, PT STATES "WILL ", 11/07/24) aspirin (Verified Allergy, Mild, 02/20/15) Uncoded Allergies: sunflower seeds (Allergy, Intermediate, develops a rash, 09/22/12) Home Medications Home Medications Active Reported Gurpreet MCMANUS* (Divalproex Sodium) 500 Mg Tablet. 1 Tab PO Q6H Ondansetron Odt (Ondansetron HCl) 4 Mg Tab.rapdis 4 Mg PO Q6H PRN Clindamycin HCL* (Clindamycin HCl) 300 Mg Capsule 1 Cap PO Q6H Claritin (Loratadine) 10 Mg Tablet 10 Mg PO DAILY Trazodone Hcl* (Trazodone HCl) 100 Mg Tablet 100 Mg PO HS Past Medical History Past Medical History COPD, CHF, hypertension, chronic pain syndrome, type 2 diabetes mellitus, polysubstance abuse, morbid obesity Past Surgical History Surgical History Comment Could not determine at the moment Family History Family History: Patient reports no known family medical history. Past Social History Social History Comment Homeless Endorses methamphetamine use and polysubstance abuse. Endorses smoking cigarettes. ROS ROS As stated above in the HPI, otherwise all systems are reviewed and negative. Exam Vitals: Vital Signs Date Time Temp Pulse Resp B/P (MAP) Pulse Ox O2 Delivery O2 Flow Rate FiO2 11/09/24 08:46 96 30 11/09/24 08:43 96 40 11/09/24 08:20 Venturi Mask+ 6 11/09/24 06:00 98.5 189/107 (134) General: General: Somnolent, is in acute distress. HEENT: Conjunctiva pink, Sclera clear, Mucus Membranes moist. Neck: Supple without masses and tenderness. Resp: Labored shallow breathing, on BiPAP. Bilateral wheezing present. Heart: Regular Rate and rhythm, normal S1 and S2 without murmur, rub or gallop. Abdomen: Soft and non tender no organomegaly Extremities: No cyanosis,clubbing, 1+ edema bilateral lower extremity Skin: Warm and Dry. Neurology: Patient is somnolent, responds to commands and easily arousable. He is able to move all four limbs. No focal motor or sensory deficits noted. Diagnostic Data Last Recorded Lab Results: 11/09/24 0608 11/09/24 06 Diagnostic Data: Laboratory Tests Test 11/07/24 08:00 Prothrombin Time 10.9 SECONDS (9.0-12.0) INR International Normalized Ratio 1.1 INR Activated Partial Thromboplast Time 27 SECONDS (22-32) D-Dimer 3.68 MG/L FEU (0-0.50) H D-Dimer Comment Coagulation Comments Additional Plan Nephrology consult note: CACHORRO UTI The patient most likely also has a underlying CKD. The most likely cause of the patient's CACHORRO is prerenal, renal tubular stasis. Decreased perfusion most likely due to patient's worsening heart failure. The patient's BUN and creatinine yesterday 85 and 2.94. The patient's creatinine and tired and trending down with diuresis. Continue IV Lasix for adequate diuresis. Strict monitoring of input and output. Maintain negative fluid balance. Ordered spot urine studies to calculate FENA, fractional excretion of urea, protein to creatinine ratio. We will follow up accordingly. Continue to monitor renal function test closely. The renal function is improving significantly. No need for dialysis today. We will assess the patient daily for any need for any emergent dialysis. Follow up with urine cultures and change antibiotics as per the cultures. Acute hypoxemic respiratory failure Acute COPD exacerbation Acute congestive heart failure with preserved ejection fraction Possible flash pulmonary edema Management per the primary care team. Currently on BiPAP Echocardiogram was done which shows mildly increased left ventricular size with a normal wall thickness. The left ventricular ejection fraction is 50-55%. Right ventricle is mildly increased in size. There is also dilation of the left atrium. Patient is currently receiving IV Lasix 60 mg q.8 hours. Strict input and output monitoring to maintain negative fluid balance advised. Continue DuoNeb nebulizations q.4 hours scheduled. Respiratory evaluation and treatment to be done. Antibiotics and steroids as per the primary team for the COPD exacerbation and underlying UTI. The patient has likely developed possible flash pulmonary edema due to the congestive heart failure and hypertensive emergency. Decreasing the afterload and by adequate control of her blood pressure is recommended. Decreasing preload with the IV diuresis is being done. Hypertensive emergency Management per primary team. Patient continues to have significant elevated blood pressures. He was initially treated on nitroglycerin drip without significant improvement. Currently the patient is started on nicardipine drip. He has also been started on amlodipine 10 mg p.o. daily and losartan 25 mg p.o. daily. IV labetalol 10 mg q.4 hours as needed for high blood pressures. Hyperkalemia The patient was initially treated with IV sodium bicarb, Kayexalate and insulin with the dextrose. The potassium level has improved. Continue to monitor the patient's electrolytes closely. Dmitri Ruiz MD Internal Medicine Resident, PGY-2 Date of Service: Nov 09, 2024 Billing Provider: RONI HADDAD III, SURYA PRATIK, RES Nov 09, 2024 10:45
[2024-11-09] MEDS: niCARDipine-NS 40mg/200ml IVPB 200 ML IV SCH (11:09)
--- NOTE | 2024-11-09 16:28 | PROGRESS NOTE ---
Daily Progress Note Providers to CC ~ episode of acute respiratory distress today Central Line/PICC still needed: No Zavaleta-Non Protocol Zavaleta Indications Met/Not Met: F/C Indications Met Antibiotic Timeout Antibiotic Ordered?: Yes MRSA Education MRSA Education Provided to pt: Yes Subjective As above Objective Vital Signs Date Time Temp Pulse Resp B/P (MAP) Pulse Ox O2 Delivery O2 Flow Rate FiO2 11/09/24 15:38 93 18 92 35 14 11/09/24 15:00 97.1 138/85 (102) Bi-pap/CPAP 11/09/24 08:20 6 Vital signs, stable ,afebrile. Pulse Oximetry reflects adequate oxygenation on BiPAP, FiO2 35% General: well developed, well nourished. Awake , alert, and oriented x4, resting comfortably in the bed, in no acute distress . Skin: Warm, dry, no pallor, no rash or petechiae. HEENT: Atraumatic, normocephalic, EOMI, anicteric sclera B; pink conjunctiva; PERRLA, normal oropharynx, moist oral and nasal mucosa. Tympanic membrane , nose , throat clear. Neck: Trachea midline. Supple, full range of motion, no JVD, bruit , hepatojugular reflex , lymphadenopathy or masses, or other lesions Cardiac: Regular rhythm, regular rate no murmurs, rubs, or gallops. Normal S1 and S2, no S3 noticed. PMI is normal. Respiratory: Equal breath sounds bilaterally, no tachypnea; lungs clear to auscultation bilaterally, no wheezing ,rub or rales, or crackles. Chest wall is symmetric and without deformity. No signs of trauma. Chest wall is nontender. No signs of respiratory distress. Resonance is normal upon percussion bilaterally. Gastrointestinal: Abdomen symmetric, non-distended, soft, non-tender, normal bowel sounds x4 quadrant, normoactive, no hepatosplenomegaly , no masses , no bruit, no flank pain bilaterally. No voluntary guarding, rebound, or rigidity. No tenderness to percussion. No pulsatile masses. Equal femoral pulses. No Giraldo's sign or McBurney point tenderness. Back; no CVA tenderness bilaterally, no deformities. Neck and back are without deformity as well. No tenderness noted on palpation of the spinous processes. Spinous processes are midline. Cervical, thoracic, and lumbar paraspinal muscles are not tender and are without spasm. : normal external genitalia, without lesions, swelling, masses or tenderness. Musculoskeletal: Extremities, normal range of motion, non-tender, muscle strength 5/5 x 4. Negative Homans signs bilaterally on lower extremity. Distal pulses full symmetrical, no clubbing, cyanosis, bilateral lower extremity plus four edema up to the thighs Neurological: Speech is clear, alert, and oriented x 4. No motor or sensory deficit, deep tendon reflexes normal, cerebellar intact. Cranial nerves II-XII intact. Psych: Alert and or appropriate, normal affect. Vascular: Good distal pulses, which are equal x4; capillary refill less than 2 seconds. Lymphatic, no lymphadenopathy. Result Diagram: 11/09/24 0608 11/09/24 0608 Coagulation Studies Laboratory Tests Test 11/07/24 08:00 Prothrombin Time 10.9 SECONDS (9.0-12.0) INR International Normalized Ratio 1.1 INR Activated Partial Thromboplast Time 27 SECONDS (22-32) D-Dimer 3.68 MG/L FEU (0-0.50) H D-Dimer Comment Coagulation Comments Problem\Assessment\Plan Assessment Hypertensive emergency, blood pressure on admission 187 over 103 Hyperkalemia, improving Chronic amphetamine abuse including currently Acute amphetamine intoxication Chronic CHF diastolic in exacerbation ejection fraction 52% Acute respiratory failure secondary to hypoxia Bilateral pleural effusion right more than left Chronic tobacco abuse including currently Anemia hemoglobin 12 Multiple drug allergy Acute Renal failure COPD in exacerbation Chronic pain syndrome secondary to low back degenerative disc disease Diabetes mellitus type 2 poor control UTI Plan Serial troponin EKG IV Lasix, Cardene infusion, steroids, antibiotics SVN DuoNeb, incentive spirometry Oxygen support therapy Additional lab work pending Correct electrolytes She had nephrology team expertise and assistance Echocardiography completed Hyperglycemia sliding scale V/Q test completed I reconciled home medications DVT gastropathy prophylaxis addressed Sepsis Screening Reassessment Date: Nov 09, 2024 Date of Service: Nov 09, 2024 Billing Provider: BE NIX MD Common Visit Codes: 54415-[id number] INP/OBS CARE(HIGH) BE NIX MD Nov 09, 2024 16:28
[2024-11-09] MEDS: HYDROchlorothiazide 25mg tablet PO SCH (20:42)
[2024-11-10] VITALS (17 sets, daily range): BP systolic 121–146; BP diastolic 59–83; PULSE 81–118; RESP 13–22; TEMP 97.3–98.4; O2SAT 92–95
[2024-11-10] MEDS: divalproex sodium 500mg tablet.DR PO ONE (00:48)
[2024-11-10] MEDS: divalproex sodium 500mg tablet.DR PO SCH ×2 (07:10→21:03)
[2024-11-10 07:49] LABS: ANION GAP 9 (8-16); BILIRUBIN,TOTAL 0.3 MG/DL (0.1-1.0); BLOOD UREA NITROGEN 96 MG/DL (7-18); BUN/CREATININE RATIO 36.9 (10.0-20.0); CALCIUM 7.9 MG/DL (8.5-10.1); CHLORIDE 105 MMOL/L (99-107); GLUCOSE 115 MG/DL (70-104); SODIUM 139 MMOL/L (135-145); TOTAL CARBON DIOXIDE 24.7 MMOL/L (24-32); TOTAL PROTEIN 5.9 G/DL (6.4-8.2); eCRCL 26 ML/MIN; eGFR 25 ML/MIN
[2024-11-10 07:50] LABS: ALANINE AMINOTRANSFERASE 39 U/L (12-78); ALBUMIN/GLOBULIN RATIO 0.5 (1.1-1.5); ALKALINE PHOSPHATASE 92 IU/L (46-116); ASPARTATE AMINO TRANSFERASE 23 U/L (10-37)
[2024-11-10 08:06] LABS: POTASSIUM 4.9 MMOL/L (3.5-5.1)
[2024-11-10 09:55] LABS: BASOPHILS # (AUTO) 0.1 X10'3 (0-0.2); BASOPHILS % (AUTO) 0.4 % (0-1); EOSINOPHILS # (AUTO) 0.3 X10'3 (0-0.9); EOSINOPHILS % (AUTO) 2.1 % (0-6); HEMATOCRIT 31.8 % (42.0-52.0); HEMOGLOBIN 10.9 g/dl (14.0-17.9); LYMPHOCYTES # (AUTO) 2.9 X10'3 (1.1-4.8); MEAN CORPUSCULAR HEMOGLOBIN 29.6 PG (27.0-31.0); MEAN CORPUSCULAR HGB CONC 34.2 g/dL (33.0-36.5); MEAN CORPUSCULAR VOLUME 86.7 FL (78-98); MEAN PLATELET VOLUME 6.7 FL (7.4-10.4); MONOCYTES # (AUTO) 1.9 X10'3 (0-0.9); MONOCYTES % (AUTO) 13.2 % (2-12); NEUTROPHILS # (AUTO) 9.2 X10'3 (1.8-7.7); NEUTROPHILS % (AUTO) 64.3 % (42-75); PLATELET COUNT 478 X10'3 (140-440); RED BLOOD COUNT 3.66 X10'6 (4.70-6.10); RED CELL DISTRIBUTION WIDTH 14.4 % (11.5-14.5); WHITE BLOOD COUNT 14.3 X10'3 (4.5-11.0)
--- NOTE | 2024-11-10 09:58 | PROGRESS NOTE- Residence ---
Progress Note - Resident Providers to CC Resident Creating Document: DMITRI RUIZTIKKASSANDRA ~ Antibiotic Timeout Antibiotic Ordered?: Yes Subjective Patient seen and examined at the bedside today. Appears to be better when compared to yesterday. Resting comfortably, on 4 L oxygen via nasal cannula. Answering all questions appropriately. Denied any acute or new concerns or complaints at the moment. Stated that he understands he has to stop using recreational drugs. Objective Vital Signs Date Time Temp Pulse Resp B/P (MAP) Pulse Ox O2 Delivery O2 Flow Rate FiO2 11/10/24 08:17 92 18 95 Nasal Cannula* 4 36 11/10/24 06:00 97.9 132/69 (90) Result Diagram: 11/09/24 0608 11/10/24 0636 General: Awake, drowsy. Oriented to time place and person. HEENT: Conjunctiva pink, Sclera clear, Mucus Membranes moist. Neck: Supple without masses and tenderness. Resp: Unlabored. Bilateral expiratory wheezing present. Bibasilar crackles present. Heart: Regular Rate and rhythm, normal S1 and S2 without murmur, rub or gallop. Abdomen: Soft and non tender no organomegaly Extremities: No cyanosis,clubbing, 2+ edema on bilateral lower extremities. Skin: Warm and Dry. Neurology: Oriented. No focal motor or sensory deficits. Coagulation Studies Laboratory Tests Test 11/07/24 08:00 Prothrombin Time 10.9 SECONDS (9.0-12.0) INR International Normalized Ratio 1.1 INR Activated Partial Thromboplast Time 27 SECONDS (22-32) D-Dimer 3.68 MG/L FEU (0-0.50) H D-Dimer Comment Coagulation Comments Assessment Assessment 59 years old male past medical history of COPD, seizures, chronic pain syndrome, type 2 diabetes mellitus, methamphetamine use, CHF, morbid obesity, hypertension is admitted in the hospital for evaluation and management of acute hypoxemic respiratory failure most likely secondary to acute CHF exacerbation, COPD exacerbation. The patient also developed CACHORRO most likely screen very to decreased renal perfusion due to CHF. Plan Plan Nephrology progress note: CACHORRO UTI The patient most likely also has a underlying CKD. The most likely cause of the patient's CACHORRO is prerenal, renal tubular stasis. Decreased perfusion most likely due to patient's worsening heart failure. The patient's BUN and creatinine are stable when compared to yesterday. Continue IV Lasix for adequate diuresis. The patient is eyes and nose show a negative fluid balance of 1700 mL. Continue maintaining negative fluid balance with adequate diuresis. Strict monitoring of I's and O's. No need for dialysis today. We will continue to assess the patient on day-to-day basis. Acute hypoxemic respiratory failure Acute COPD exacerbation Acute congestive heart failure with preserved ejection fraction Possible flash pulmonary edema Patient is currently on 4 L oxygen via nasal cannula. Has been refusing BiPAP. Echocardiogram was done which shows mildly increased left ventricular size with a normal wall thickness. The left ventricular ejection fraction is 50-55%. Right ventricle is mildly increased in size. There is also dilation of the left atrium. Patient is currently receiving IV Lasix 60 mg q.8 hours. Has been putting out good amount of output. Continue sit input and output monitoring. Maintain negative fluid balance. Respiratory evaluation and treatment to be done. Antibiotics and steroids as per the primary team for the COPD exacerbation. The patient has likely developed possible flash pulmonary edema due to the congestive heart failure and hypertensive emergency. Decreasing the afterload and by adequate control of her blood pressure is recommended. Decreasing preload with the IV diuresis is being done. Hypertensive emergency Patient's blood pressure is currently controlled on IV nicardipine drip. Currently the patient is started on nicardipine drip. He has also been started on amlodipine 10 mg p.o. daily and losartan 25 mg p.o. daily. Hydrated and monitor vitals closely. Hyperkalemia-resolved Continue to monitor the patient's electrolytes daily. Dmitri Ruiz MD Internal Medicine Resident, PGY-2 Date of Service: Nov 10, 2024 Billing Provider: RONI HADDAD III, SURYA PRATIK, RES Nov 10, 2024 09:58
[2024-11-10 11:42] LABS: TOTAL PROTEIN,URINE RANDOM 264.8 MG/DL
--- NOTE | 2024-11-10 19:04 | PROGRESS NOTE ---
Daily Progress Note Providers to CC Feels better today, less shortness of breath less bilateral lower extremity edema ~ Central Line/PICC still needed: No Zavaleta-Non Protocol Zavaleta Indications Met/Not Met: F/C Indications Not Met Antibiotic Timeout Antibiotic Ordered?: Yes MRSA Education MRSA Education Provided to pt: Yes Subjective As above Objective Vital Signs Date Time Temp Pulse Resp B/P (MAP) Pulse Ox O2 Delivery O2 Flow Rate FiO2 11/10/24 17:57 92 144/75 11/10/24 16:29 20 95 Nasal Cannula* 3 32 11/10/24 15:00 98.4 Vital signs, stable ,afebrile. Pulse Oximetry reflects adequate oxygenation 3 L oxygen nasal cannula General: well developed, well nourished. Awake , alert, and oriented x4, resting comfortably in the bed, in no acute distress . Skin: Warm, dry, no pallor, no rash or petechiae. HEENT: Atraumatic, normocephalic, EOMI, anicteric sclera B; pink conjunctiva; PERRLA, normal oropharynx, moist oral and nasal mucosa. Tympanic membrane , nose , throat clear. Neck: Trachea midline. Supple, full range of motion, no JVD, bruit , hepatojugular reflex , lymphadenopathy or masses, or other lesions Cardiac: Regular rhythm, regular rate no murmurs, rubs, or gallops. Normal S1 and S2, no S3 noticed. PMI is normal. Respiratory: Equal breath sounds bilaterally, no tachypnea; lungs clear to auscultation bilaterally, no wheezing ,rub or rales, or crackles. Chest wall is symmetric and without deformity. No signs of trauma. Chest wall is nontender. No signs of respiratory distress. Resonance is normal upon percussion bilaterally. Gastrointestinal: Abdomen symmetric, non-distended, soft, non-tender, normal bowel sounds x4 quadrant, normoactive, no hepatosplenomegaly , no masses , no bruit, no flank pain bilaterally. No voluntary guarding, rebound, or rigidity. No tenderness to percussion. No pulsatile masses. Equal femoral pulses. No Giraldo's sign or McBurney point tenderness. Back; no CVA tenderness bilaterally, no deformities. Neck and back are without deformity as well. No tenderness noted on palpation of the spinous processes. Spinous processes are midline. Cervical, thoracic, and lumbar paraspinal muscles are not tender and are without spasm. : normal external genitalia, without lesions, swelling, masses or tenderness. Musculoskeletal: Extremities, normal range of motion, non-tender, muscle strength 5/5 x 4. Negative Homans signs bilaterally on lower extremity. Distal pulses full symmetrical, no clubbing, cyanosis bilateral lower extremity plus four edema up to the thigh improving Neurological: Speech is clear, alert, and oriented x 4. No motor or sensory deficit, deep tendon reflexes normal, cerebellar intact. Cranial nerves II-XII intact. Psych: Alert and or appropriate, normal affect. Vascular: Good distal pulses, which are equal x4; capillary refill less than 2 seconds. Lymphatic, no lymphadenopathy. Result Diagram: 11/10/24 0844 11/10/24 0636 Coagulation Studies Laboratory Tests Test 11/07/24 08:00 Prothrombin Time 10.9 SECONDS (9.0-12.0) INR International Normalized Ratio 1.1 INR Activated Partial Thromboplast Time 27 SECONDS (22-32) D-Dimer 3.68 MG/L FEU (0-0.50) H D-Dimer Comment Coagulation Comments Problem\Assessment\Plan Assessment Hypertensive emergency, blood pressure on admission 187 over 103 Hyperkalemia, improving Chronic amphetamine abuse including currently Acute amphetamine intoxication Chronic CHF diastolic in exacerbation ejection fraction 52% Acute respiratory failure secondary to hypoxia Bilateral pleural effusion right more than left Chronic tobacco abuse including currently Anemia hemoglobin 12 Multiple drug allergy Acute Renal failure COPD in exacerbation Chronic pain syndrome secondary to low back degenerative disc disease Diabetes mellitus type 2 poor control UTI Plan IV Lasix, Cardene infusion, steroids, antibiotics SVN DuoNeb, incentive spirometry Oxygen support therapy Additional lab work pending Correct electrolytes Appreciated nephrology team expertise and assistance Echocardiography completed Hyperglycemia sliding scale V/Q test completed I reconciled home medications DVT gastropathy prophylaxis addressed Sepsis Screening Reassessment Date: Nov 10, 2024 Date of Service: Nov 10, 2024 Billing Provider: BE NIX MD Common Visit Codes: [id number] INP/OBS CARE(HIGH) BE NIX MD Nov 10, 2024 19:04
[2024-11-10] MEDS: diazepam inj 5 MG/ML inj. IV ONE (22:31)
--- NOTE | 2024-11-10 23:14 | RADIOLOGY REPORT ---
Clinical History Fall Comparison None Technique: Noncontrast CT volume data aquisition of the head viewed in axial, coronal and sagittal planes. All CT scans at this medical facility are performed using dose modulation techniques as appropriate t o a performed exam including the following: Automated exposure control was utilized; adjustment of th e mA and/or kV according to patient size; and use of iterative reconstruction technique. All CT studies are reported to the Dose Index Registry of the [employer]. Without Contrast Radiation Dose: CTDI (mGy): 63.64; DLP (mGy-cm): 1232.28 SHANNON BACH, [id number] FINDINGS: Ventricles are of normal size, shape and position. There are no intra-axial or extra-axial collectio ns of blood or fluid. There is no mass, mass effect or shift of midline structures. There is no CT evidence for acute ischemic infarct. MRI is more sensitive for this diagnosis. Posterior fossa structures are unremarkable. Sella and parasellar regions are unremarkable. Basal c isterns are patent. Orbits and orbital contents are unremarkable. There is mucoperiosteal thickening in right maxillary sinus and some ethmoid sinuses. Mastoid air cells are clear, osseous structures intact. IMPRESSION: 1. No significant intracranial pathology identified on noncontrast CT 2. No evidence of acute intracranial hemorrhage. No evidence of skull fracture. 3. Right maxillary and some ethmoid chronic sinusitis This report was electronically signed by Bob Rob MD on 11/10/2024 11:11:12 PM.
[2024-11-11] VITALS (16 sets, daily range): BP systolic 115–192; BP diastolic 57–97; PULSE 85–96; RESP 12–24; TEMP 97.4–98; O2SAT 87–97
[2024-11-11] MEDS: diazepam inj 5 MG/ML inj. IV SCH (02:32)
[2024-11-11 06:01] LABS: BASOPHILS # (AUTO) 0.1 X10'3 (0-0.2); BASOPHILS % (AUTO) 0.4 % (0-1); EOSINOPHILS # (AUTO) 0.4 X10'3 (0-0.9); EOSINOPHILS % (AUTO) 2.5 % (0-6); HEMATOCRIT 32.5 % (42.0-52.0); HEMOGLOBIN 10.7 g/dl (14.0-17.9); LYMPHOCYTES # (AUTO) 2.7 X10'3 (1.1-4.8); LYMPHOCYTES % (AUTO) 17.4 % (21-51); MEAN CORPUSCULAR HEMOGLOBIN 28.6 PG (27.0-31.0); MEAN CORPUSCULAR VOLUME 86.8 FL (78-98); MEAN PLATELET VOLUME 6.4 FL (7.4-10.4); MONOCYTES # (AUTO) 1.9 X10'3 (0-0.9); NEUTROPHILS # (AUTO) 10.6 X10'3 (1.8-7.7); NEUTROPHILS % (AUTO) 67.7 % (42-75); PLATELET COUNT 468 X10'3 (140-440); RED BLOOD COUNT 3.74 X10'6 (4.70-6.10); RED CELL DISTRIBUTION WIDTH 14.2 % (11.5-14.5); WHITE BLOOD COUNT 15.6 X10'3 (4.5-11.0)
[2024-11-11 06:22] LABS: ALANINE AMINOTRANSFERASE 34 U/L (12-78); ALBUMIN/GLOBULIN RATIO 0.5 (1.1-1.5); ALKALINE PHOSPHATASE 90 IU/L (46-116); ANION GAP 8 (8-16); ASPARTATE AMINO TRANSFERASE 17 U/L (10-37); BILIRUBIN,TOTAL 0.2 MG/DL (0.1-1.0); BLOOD UREA NITROGEN 101 MG/DL (7-18); BUN/CREATININE RATIO 34.4 (10.0-20.0); CALCIUM 8.2 MG/DL (8.5-10.1); CHLORIDE 108 MMOL/L (99-107); CREATININE 2.94 MG/DL (0.60-1.10); GLUCOSE 110 MG/DL (70-104); POTASSIUM 4.5 MMOL/L (3.5-5.1); SODIUM 143 MMOL/L (135-145); TOTAL CARBON DIOXIDE 26.7 MMOL/L (24-32); eCRCL 23 ML/MIN; eGFR 22 ML/MIN
[2024-11-11] MEDS: azithromycin 250mg tablet PO SCH (08:42)
[2024-11-11 08:45] LABS: PLATELET ESTIMATE INCREASED; TOTAL CELLS COUNTED 100
--- NOTE | 2024-11-11 10:48 | PROGRESS NOTE ---
Progress Note Dictate Providers to CC ~ Central Line/PICC still needed: Yes Central Line/PICC Necessity: Prolonged IV access req Zavaleta Indications Met/Not Met: F/C Indications Met Antibiotic Ordered?: N/A Subjective Subjective urine output has been impressive. BUN and creatinine are also on the slow rise. But he still needs to lose weight from fluids. If BUn and creatinine continue to worsen, will consider dialyiss next week Objective Vitals Vital Signs Date Time Temp Pulse Resp B/P (MAP) Pulse Ox O2 Delivery O2 Flow Rate FiO2 11/11/24 14:40 94 152/76 11/11/24 11:00 97.4 13 95 Nasal Cannula 4.0 11/10/24 16:29 32 Lab Results: 11/11/24 0543 11/11/24 0543 Objective Vital Signs: As above General: obese body habitus, no acute distress. Skin: No rashes, lumps, ulcers, blisters, purpura or petechiae HEENT: Anicteric sclera, INES Neck: Supple and nontender without enlargement of the thyroid, or lymphadenopathy. Chest: Normal size and shape, no tenderness, CTA bilaterally Heart: Regular. No jugular venous distention, S1 and S2 heard , no gallop Abdomen: Soft and non tender no organomegaly,BS+ Extremities: 3+ pedal edema Neuro: Nonfocal. Coagulation Studies Laboratory Tests Test 11/07/24 08:00 Prothrombin Time 10.9 SECONDS (9.0-12.0) INR International Normalized Ratio 1.1 INR Activated Partial Thromboplast Time 27 SECONDS (22-32) D-Dimer 3.68 MG/L FEU (0-0.50) H D-Dimer Comment Coagulation Comments Advance Care Planning Advanced Care plannin - 30 Minutes Problem\Assessment\Plan Problems/Diagnosis: (1) Hypertension Assessment & Plan: stable. (2) CACHORRO (acute kidney injury) Assessment & Plan: as above. BUn and creatinine are slowly increasing with jasmin aggressive diuresis but he is still edematous. (3) CKD (chronic kidney disease) Assessment & Plan: He has nephrotic range protienuria. will do the serological tests. rule out paraproteins. (4) New onset of congestive heart failure Assessment & Plan: optimize afterload reducers. GRECIA YANG MD Nov 11, 2024 10:48
[2024-11-11] MEDS: VANCOMYCIN LEVEL IV ONE (15:30)
[2024-11-11] MEDS: VANCOMYCIN 750MG IV in NS 250 ML IV SCH (17:38)
--- NOTE | 2024-11-11 18:25 | PROGRESS NOTE ---
Daily Progress Note Providers to CC Had an episode of fall ground level last night otherwise doing the same mild improvement not significant changes in bilateral lower extremity edema ~ Central Line/PICC still needed: No Zavaleta-Non Protocol Zavaleta Indications Met/Not Met: F/C Indications Not Met Antibiotic Timeout Antibiotic Ordered?: Yes MRSA Education MRSA Education Provided to pt: Yes Subjective As above Objective Vital Signs Date Time Temp Pulse Resp B/P (MAP) Pulse Ox O2 Delivery O2 Flow Rate FiO2 11/11/24 14:40 94 152/76 11/11/24 11:00 97.4 13 95 Nasal Cannula 4.0 11/10/24 16:29 32 Vital signs, stable ,afebrile. Pulse Oximetry reflects adequate oxygenation on 4 L oxygen nasal cannula General: well developed, well nourished. Awake , alert, and oriented x4, resting comfortably in the bed, in no acute distress . Skin: Warm, dry, no pallor, no rash or petechiae. HEENT: Atraumatic, normocephalic, EOMI, anicteric sclera B; pink conjunctiva; PERRLA, normal oropharynx, moist oral and nasal mucosa. Tympanic membrane , nose , throat clear. Neck: Trachea midline. Supple, full range of motion, no JVD, bruit , hepatojugular reflex , lymphadenopathy or masses, or other lesions Cardiac: Regular rhythm, regular rate no murmurs, rubs, or gallops. Normal S1 and S2, no S3 noticed. PMI is normal. Respiratory: Equal breath sounds bilaterally, no tachypnea; lungs clear to auscultation bilaterally, no wheezing ,rub or rales, or crackles. Chest wall is symmetric and without deformity. No signs of trauma. Chest wall is nontender. No signs of respiratory distress. Resonance is normal upon percussion bilaterally. Gastrointestinal: Abdomen symmetric, non-distended, soft, non-tender, normal bowel sounds x4 quadrant, normoactive, no hepatosplenomegaly , no masses , no bruit, no flank pain bilaterally. No voluntary guarding, rebound, or rigidity. No tenderness to percussion. No pulsatile masses. Equal femoral pulses. No Giraldo's sign or McBurney point tenderness. Back; no CVA tenderness bilaterally, no deformities. Neck and back are without deformity as well. No tenderness noted on palpation of the spinous processes. Spinous processes are midline. Cervical, thoracic, and lumbar paraspinal muscles are not tender and are without spasm. : normal external genitalia, without lesions, swelling, masses or tenderness. Musculoskeletal: Extremities, normal range of motion, non-tender, muscle strength 5/5 x 4. Negative Homans signs bilaterally on lower extremity. Distal pulses full symmetrical, no clubbing, cyanosis locally, bilateral lower extremity plus four edema up to the thigh Neurological: Speech is clear, alert, and oriented x 4. No motor or sensory deficit, deep tendon reflexes normal, cerebellar intact. Cranial nerves II-XII intact. Psych: Alert and or appropriate, normal affect. Vascular: Good distal pulses, which are equal x4; capillary refill less than 2 seconds. Lymphatic, no lymphadenopathy. Result Diagram: 11/11/24 0543 11/11/24 0543 Coagulation Studies Laboratory Tests Test 11/07/24 08:00 Prothrombin Time 10.9 SECONDS (9.0-12.0) INR International Normalized Ratio 1.1 INR Activated Partial Thromboplast Time 27 SECONDS (22-32) D-Dimer 3.68 MG/L FEU (0-0.50) H D-Dimer Comment Coagulation Comments Problem\Assessment\Plan Assessment Hypertensive emergency, blood pressure on admission 187 over 103 Hyperkalemia, improving Chronic amphetamine abuse including currently Acute amphetamine intoxication Chronic CHF diastolic in exacerbation ejection fraction 52% Acute respiratory failure secondary to hypoxia Bilateral pleural effusion right more than left Chronic tobacco abuse including currently Anemia hemoglobin 12 Multiple drug allergy Acute Renal failure COPD in exacerbation Chronic pain syndrome secondary to low back degenerative disc disease Diabetes mellitus type 2 poor control UTI Plan IV Lasix, Cardene infusion, steroids, antibiotics SVN DuoNeb, incentive spirometry Oxygen support therapy Additional lab work pending Correct electrolytes Renal function mildly worsened today Echocardiography completed Hyperglycemia sliding scale V/Q test completed I reconciled home medications DVT gastropathy prophylaxis addressed Date of Service: Nov 11, 2024 Billing Provider: BE NIX MD Common Visit Codes: [id number] INP/OBS CARE(HIGH) BE NIX MD Nov 11, 2024 18:25
[2024-11-12] VITALS (21 sets, daily range): BP systolic 129–160; BP diastolic 62–84; PULSE 82–94; RESP 16–22; TEMP 97.5–98.2; O2SAT 91–98
[2024-11-12 06:45] LABS: BASOPHILS % (AUTO) 0.2 % (0-1); EOSINOPHILS # (AUTO) 0.3 X10'3 (0-0.9); EOSINOPHILS % (AUTO) 1.8 % (0-6); HEMATOCRIT 32.9 % (42.0-52.0); HEMOGLOBIN 10.7 g/dl (14.0-17.9); LYMPHOCYTES # (AUTO) 1.8 X10'3 (1.1-4.8); LYMPHOCYTES % (AUTO) 9.4 % (21-51); MEAN CORPUSCULAR HEMOGLOBIN 28.1 PG (27.0-31.0); MEAN CORPUSCULAR HGB CONC 32.4 g/dL (33.0-36.5); MEAN CORPUSCULAR VOLUME 86.6 FL (78-98); MEAN PLATELET VOLUME 6.6 FL (7.4-10.4); MONOCYTES # (AUTO) 2.8 X10'3 (0-0.9); MONOCYTES % (AUTO) 14.5 % (2-12); NEUTROPHILS # (AUTO) 14.1 X10'3 (1.8-7.7); NEUTROPHILS % (AUTO) 74.1 % (42-75); PLATELET COUNT 484 X10'3 (140-440); RED CELL DISTRIBUTION WIDTH 14.4 % (11.5-14.5)
[2024-11-12 07:34] LABS: ALANINE AMINOTRANSFERASE 36 U/L (12-78); ALBUMIN 2.1 G/DL (3.4-5.0); ALBUMIN/GLOBULIN RATIO 0.5 (1.1-1.5); ALKALINE PHOSPHATASE 97 IU/L (46-116); ANION GAP 12 (8-16); ASPARTATE AMINO TRANSFERASE 22 U/L (10-37); BILIRUBIN,TOTAL 0.2 MG/DL (0.1-1.0); BLOOD UREA NITROGEN 106 MG/DL (7-18); BUN/CREATININE RATIO 35.2 (10.0-20.0); CALCIUM 8.4 MG/DL (8.5-10.1); CHLORIDE 106 MMOL/L (99-107); CREATININE 3.01 MG/DL (0.60-1.10); GLUCOSE 67 MG/DL (70-104); SODIUM 144 MMOL/L (135-145); THYROID STIMULATING HORMONE 1.89 ulU/ml (0.34-4.50); TOTAL CARBON DIOXIDE 26.5 MMOL/L (24-32); TOTAL PROTEIN 6.2 G/DL (6.4-8.2); eCRCL 23 ML/MIN; eGFR 21 ML/MIN
[2024-11-12 09:02] LABS: PLATELET ESTIMATE INCREASED; TOTAL CELLS COUNTED 100
--- NOTE | 2024-11-12 10:00 | PROGRESS NOTE ---
Progress Note Dictate Providers to CC ~ Central Line/PICC still needed: Yes Zavaleta Indications Met/Not Met: F/C Indications Met Antibiotic Ordered?: N/A Subjective Subjective morbidly obese man with anasarca, with excellent diuresis so far. Objective Vitals Vital Signs Date Time Temp Pulse Resp B/P (MAP) Pulse Ox O2 Delivery O2 Flow Rate FiO2 11/12/24 13:34 136/65 11/12/24 13:19 91 11/12/24 11:00 97.8 19 94 Nasal Cannula 4.0 11/11/24 19:47 21 Lab Results: 11/12/24 0609 11/12/24 0609 Objective Vital Signs: As above General: obese body habitus, no acute distress. Skin: No rashes, lumps, ulcers, blisters, purpura or petechiae HEENT: Anicteric sclera, INES Neck: Supple and nontender without enlargement of the thyroid, or lymphadenopathy. Chest: Normal size and shape, no tenderness, CTA bilaterally Heart: Regular. No jugular venous distention, S1 and S2 heard , no gallop Abdomen: Soft and non tender no organomegaly,BS+ Extremities: 3+ pedal edema Neuro: Nonfocal. Coagulation Studies Laboratory Tests Test 11/07/24 08:00 Prothrombin Time 10.9 SECONDS (9.0-12.0) INR International Normalized Ratio 1.1 INR Activated Partial Thromboplast Time 27 SECONDS (22-32) D-Dimer 3.68 MG/L FEU (0-0.50) H D-Dimer Comment Coagulation Comments Advance Care Planning Advanced Care plannin - 30 Minutes Problem\Assessment\Plan Problems/Diagnosis: (1) Hypertension Assessment & Plan: stable. (2) CACHORRO (acute kidney injury) Assessment & Plan: as above. BUn and creatinine are slowly increasing with jasmin aggressive diuresis but he is still edematous. (3) CKD (chronic kidney disease) Assessment & Plan: He has nephrotic range protienuria. will do the serological tests. rule out paraproteins. (4) New onset of congestive heart failure Assessment & Plan: optimize afterload reducers. GRECIA YANG MD Nov 12, 2024 10:00
[2024-11-12] MEDS: COMMUNICATION ORDER 1 EA MISC MC ONE (13:36)
[2024-11-12] MEDS ORDERED: mineral oil 133ml enema RC PRN (16:15)
--- NOTE | 2024-11-12 16:19 | PROGRESS NOTE ---
Daily Progress Note Providers to CC ~ resting comfortably in the bed, intermittently agitated Central Line/PICC still needed: No Zavaleta-Non Protocol Zavaleta Indications Met/Not Met: F/C Indications Not Met Antibiotic Timeout Antibiotic Ordered?: Yes MRSA Education MRSA Education Provided to pt: Yes Subjective As above Objective Vital Signs Date Time Temp Pulse Resp B/P (MAP) Pulse Ox O2 Delivery O2 Flow Rate FiO2 11/12/24 15:42 86 16 95 Nasal Cannula* 3 32 11/12/24 13:34 136/65 11/12/24 11:00 97.8 Vital signs, stable ,afebrile. Pulse Oximetry reflects adequate oxygenation on 3 L oxygen nasal cannula General: well developed, well nourished. Awake , alert, and oriented x4, intermittently agitated, resting comfortably in the bed, in no acute distress . Skin: Warm, dry, no pallor, no rash or petechiae. HEENT: Atraumatic, normocephalic, EOMI, anicteric sclera B; pink conjunctiva; PERRLA, normal oropharynx, moist oral and nasal mucosa. Tympanic membrane , nose , throat clear. Neck: Trachea midline. Supple, full range of motion, no JVD, bruit , hepatojugular reflex , lymphadenopathy or masses, or other lesions Cardiac: Regular rhythm, regular rate no murmurs, rubs, or gallops. Normal S1 and S2, no S3 noticed. PMI is normal. Respiratory: Equal breath sounds bilaterally, no tachypnea; lungs clear to auscultation bilaterally, no wheezing ,rub or rales, or crackles. Chest wall is symmetric and without deformity. No signs of trauma. Chest wall is nontender. No signs of respiratory distress. Resonance is normal upon percussion bilaterally. Gastrointestinal: Abdomen symmetric, non-distended, soft, non-tender, normal bowel sounds x4 quadrant, normoactive, no hepatosplenomegaly , no masses , no bruit, no flank pain bilaterally. No voluntary guarding, rebound, or rigidity. No tenderness to percussion. No pulsatile masses. Equal femoral pulses. No Giraldo's sign or McBurney point tenderness. Back; no CVA tenderness bilaterally, no deformities. Neck and back are without deformity as well. No tenderness noted on palpation of the spinous processes. Spinous processes are midline. Cervical, thoracic, and lumbar paraspinal muscles are not tender and are without spasm. : normal external genitalia, without lesions, swelling, masses or tenderness. Musculoskeletal: Extremities, normal range of motion, non-tender, muscle strength 5/5 x 4. Negative Homans signs bilaterally on lower extremity. Distal pulses full symmetrical, no clubbing, cyanosis , Bilateral lower extremity, plus four edema up to the thigh mild improvement Neurological: Occasional agitated, Speech is clear, alert, and oriented x 4. No motor or sensory deficit, deep tendon reflexes normal, cerebellar intact. Cranial nerves II-XII intact. Psych: Intermittently agitated Alert and or appropriate, normal affect. Vascular: Good distal pulses, which are equal x4; capillary refill less than 2 seconds. Lymphatic, no lymphadenopathy. Result Diagram: 11/12/2460811/12/24 0609 Coagulation Studies Laboratory Tests Test 11/07/24 08:00 Prothrombin Time 10.9 SECONDS (9.0-12.0) INR International Normalized Ratio 1.1 INR Activated Partial Thromboplast Time 27 SECONDS (22-32) D-Dimer 3.68 MG/L FEU (0-0.50) H D-Dimer Comment Coagulation Comments Problem\Assessment\Plan Assessment Hypertensive emergency, blood pressure on admission 187 over 103 Hyperkalemia, improving Chronic amphetamine abuse including currently Acute amphetamine intoxication Chronic CHF diastolic in exacerbation ejection fraction 52% Acute respiratory failure secondary to hypoxia Bilateral pleural effusion right more than left Chronic tobacco abuse including currently Anemia hemoglobin 12 Multiple drug allergy Acute Renal failure COPD in exacerbation Chronic pain syndrome secondary to low back degenerative disc disease Diabetes mellitus type 2 poor control UTI Chronic constipation in exacerbation Plan Appreciate Dr. Barker assistance and expertise and recommendations IV Lasix, Cardene infusion, steroids, antibiotics SVN DuoNeb, incentive spirometry Oxygen support therapy Additional lab work pending Correct electrolytes Renal function mildly worsened today Echocardiography completed Hyperglycemia sliding scale V/Q test completed Laxatives on board I reconciled home medications DVT gastropathy prophylaxis addressed Date of Service: Nov 12, 2024 Billing Provider: BE NIX MD Common Visit Codes: [id number] INP/OBS CARE(HIGH) BE NIX MD Nov 12, 2024 16:19
[2024-11-12] MEDS: magnesium citrate 296ml oral solution PO ONE (16:36)
[2024-11-12] MEDS: lactulose 20gm/30ml cup PO SCH (21:20)
[2024-11-12] MEDS: polyethylene glycol 3350 17gm powd pack PO SCH (21:21)
[2024-11-12] MEDS: diphenhydrAMINE 50 mg/ml inj IV ONE (23:12)
[2024-11-12] MEDS: diphenhydrAMINE 25mg capsule PO ONE ×2 (23:25→23:34)
[2024-11-12] MEDS: predniSONE 20 mg tablet PO ONE (23:25)
[2024-11-13] VITALS (18 sets, daily range): BP systolic 124–159; BP diastolic 76–90; PULSE 73–92; RESP 13–23; TEMP 97.2–99.7; O2SAT 90–98
[2024-11-13 07:23] LABS: BASOPHILS # (AUTO) 0.1 X10'3 (0-0.2); BASOPHILS % (AUTO) 0.6 % (0-1); EOSINOPHILS % (AUTO) 0.2 % (0-6); HEMATOCRIT 34.5 % (42.0-52.0); HEMOGLOBIN 11.3 g/dl (14.0-17.9); LYMPHOCYTES # (AUTO) 1.1 X10'3 (1.1-4.8); LYMPHOCYTES % (AUTO) 7.4 % (21-51); MEAN CORPUSCULAR HEMOGLOBIN 28.2 PG (27.0-31.0); MEAN CORPUSCULAR HGB CONC 32.7 g/dL (33.0-36.5); MEAN CORPUSCULAR VOLUME 86.3 FL (78-98); MEAN PLATELET VOLUME 6.5 FL (7.4-10.4); MONOCYTES # (AUTO) 0.7 X10'3 (0-0.9); MONOCYTES % (AUTO) 4.5 % (2-12); NEUTROPHILS # (AUTO) 13.5 X10'3 (1.8-7.7); NEUTROPHILS % (AUTO) 87.3 % (42-75); PLATELET COUNT 496 X10'3 (140-440); RED CELL DISTRIBUTION WIDTH 14.4 % (11.5-14.5); WHITE BLOOD COUNT 15.4 X10'3 (4.5-11.0)
[2024-11-13 07:43] LABS: ALANINE AMINOTRANSFERASE 31 U/L (12-78); ALBUMIN/GLOBULIN RATIO 0.5 (1.1-1.5); ALKALINE PHOSPHATASE 112 IU/L (46-116); ANION GAP 8 (8-16); ASPARTATE AMINO TRANSFERASE 25 U/L (10-37); BILIRUBIN,TOTAL 0.3 MG/DL (0.1-1.0); BLOOD UREA NITROGEN 103 MG/DL (7-18); BUN/CREATININE RATIO 35.9 (10.0-20.0); CALCIUM 8.5 MG/DL (8.5-10.1); CHLORIDE 105 MMOL/L (99-107); CREATININE 2.87 MG/DL (0.60-1.10); GLUCOSE 141 MG/DL (70-104); POTASSIUM 4.7 MMOL/L (3.5-5.1); SODIUM 142 MMOL/L (135-145); TOTAL CARBON DIOXIDE 29.2 MMOL/L (24-32); TOTAL PROTEIN 6.4 G/DL (6.4-8.2); eCRCL 24 ML/MIN; eGFR 23 ML/MIN
--- NOTE | 2024-11-13 07:47 | PROGRESS NOTE ---
Progress Note Dictate Providers to CC ~ Antibiotic Ordered?: N/A Subjective Subjective BIPAP this morning, continues on NTG infusion, Nicardipine discontinued yesterday, somnolent, but responds to voice and stimulus Objective Vitals Vital Signs Date Time Temp Pulse Resp B/P (MAP) Pulse Ox O2 Delivery O2 Flow Rate FiO2 11/13/24 06:00 85 94 11/13/24 05:15 21 35 21 11/13/24 05:00 143/76 (98) Bi-pap/CPAP 35.0 11/13/24 02:00 97.2 Generasl: BIPAP, appears comfortable RRR w/o murmur Coarse lung sounds at bases Anasarca still present Lab Results: 11/12/24 0609 11/12/24 0609 Coagulation Studies Laboratory Tests Test 11/07/24 08:00 Prothrombin Time 10.9 SECONDS (9.0-12.0) INR International Normalized Ratio 1.1 INR Activated Partial Thromboplast Time 27 SECONDS (22-32) D-Dimer 3.68 MG/L FEU (0-0.50) H D-Dimer Comment Coagulation Comments Other Results I & O 11/13/24 07:00 Intake Total 2700 ml Output Total 4345 ml Balance -1645 ml Intake Oral 2700 ml Output Urine Total 4325 ml Stool Total 20 ml # Bowel Movements 8 Problem\Assessment\Plan Problems/Diagnosis: (1) Hypertension Assessment & Plan: Improved, would try to wean NTG infusion today, increase Losartan to 100 mg daily, I like labetalol as needed (2) CACHORRO (acute kidney injury) Assessment & Plan: BUN and creatinine are slowly increasing with aggressive diuresis but he is still very edematous, continue current diuretics for another day, will assess daily (3) CKD (chronic kidney disease) Assessment & Plan: He has nephrotic range protienuria, evaluation in process (4) New onset of congestive heart failure Assessment & Plan: Optimize afterload reducers, and cautiously introduce guideline directed therapy as tolerated RONI HADDAD III DO Nov 13, 2024 07:47
[2024-11-13] MEDS ORDERED: HYDROcodone/acetaminophen 10/325mg tab PO PRN (12:15)
[2024-11-13 12:30] LABS: ABG BASE EXCESS 4.3 mmol/L (-2.0-3.0); ABG HCO3 31.1 mmol/L (21.0-28.0); ABG OXYGEN SATURATION 93.3 % (94.0-98.0); ABG PCO2 (T) 55.5 mmHg (35.0-48.0); ABG PH (T) 7.364 (7.350-7.450); ABG PO2 (T) 69.8 mmHg (83.0-108.0); ALLEN'S TEST POSITIVE; FCOHb 0.8 % (0.5-1.5); FHHb 6.6 % (0.0-5.0); FMetHb 0.3 % (0.0-1.5); FO2Hb 92.3 % (94.0-98.0); MODE Bipap; PATIENT TEMPERATURE 36.4; TOTAL HEMOGLOBIN 12.1 G/dl (13.5-17.5)
[2024-11-13] MEDS: NUT.TX.GLUC.INTOLER,LAC-FR,SOY (GLUCERNA) 237 ML PO SCH (13:00)
[2024-11-13] MEDS: doxycycline inj 100 MG in normal saline 100ml IV soln 100 ML IV SCH (19:35)
--- NOTE | 2024-11-13 20:09 | PROGRESS NOTE ---
Daily Progress Note Providers to CC ~ Antibiotic Timeout Antibiotic Ordered?: Yes Subjective Patient was seen in his room he looked lethargic using the BiPAP on 35% FiO2. ABG ordered and discussed with the respiratory therapy. We will use BiPAP intermittently. Medication reconciliation done for patient's current meds. Objective Vital Signs Date Time Temp Pulse Resp B/P (MAP) Pulse Ox O2 Delivery O2 Flow Rate FiO2 11/13/24 19:37 87 17 96 Nasal Cannula* 3 32 11/13/24 15:01 98.0 157/77 (103) Result Diagram: 11/13/24 0714 11/13/24 0714 General-patient not in any acute distress, chronically ill-appearing, obese, appear lethargic HEENT-atraumatic normocephalic, neck supple without elevated JVD, no thyromegaly or carotid bruit. No lymphadenopathy bilaterally. Eyes-no icterus or pallor seen in eyes Chest-clear to auscultation bilaterally, breathing nonlabored no tachypnea, no wheezing, no crepitation, no crackles. Heart-S1-S2 normal, regular heart rate no murmur Abdomen bowel sounds positive on auscultation, soft nondistended nontender no guarding, no rigidity, signs of anasarca present over abdomen. Skin no active skin rash Neurology-grossly intact, nonfocal cooperated during physical examination Extremity- 1 plus pedal edema able to move all 4 extremities Coagulation Studies Laboratory Tests Test 11/07/24 08:00 Prothrombin Time 10.9 SECONDS (9.0-12.0) INR International Normalized Ratio 1.1 INR Activated Partial Thromboplast Time 27 SECONDS (22-32) D-Dimer 3.68 MG/L FEU (0-0.50) H D-Dimer Comment Coagulation Comments Problem\Assessment\Plan Hypertensive emergency, blood pressure on admission 187 over 103 Hyperkalemia, resolved. Chronic amphetamine abuse including currently, Acute amphetamine intoxication Chronic CHF diastolic in exacerbation ejection fraction 50-55%, E chocardiography completed Acute respiratory failure secondary to hypoxia. Bilateral pleural effusion right more than left- on IV Lasix which is tapered. V/Q test completed low probability for pulmonary embolism. Chronic tobacco abuse including currently Anemia hemoglobin 12 Multiple drug allergy- will monitor Acute Renal failure -Appreciate Dr. Barker consultation and recommendations COPD in exacerbation-SVN DuoNeb, incentive spirometry, Oxygen support therapy, intermittent BiPAP Chronic pain syndrome secondary to low back degenerative disc disease Diabetes mellitus type 2 , hemoglobin A1c 7.1, on hypoglycemia/Hyperglycemia sliding scale UTI culture showed no growth after two days. DVT gastropathy prophylaxis addressed Patient's current condition is guarded I will continue to follow patient in AM . Date of Service: Nov 13, 2024 Billing Provider: NELI RADFORD MD Common Visit Codes: [id number] INP/OBS CARE(HIGH) NELI RADFORD MD Nov 13, 2024 20:09
[2024-11-13] MEDS: insulin glargine (Lantus) pen - multi-dose SQ SCH (21:09)
[2024-11-14] VITALS (16 sets, daily range): BP systolic 115–176; BP diastolic 65–84; PULSE 64–94; RESP 12–23; TEMP 97.2–98.2; O2SAT 90–99
[2024-11-14 07:11] LABS: HBSAG SCREEN Negative (Negative)
[2024-11-14] MEDS: furosemide 20 MG/2 ML vial IV SCH (07:51)
[2024-11-14] MEDS: amLODIPine 5mg tablet PO SCH (07:58)
--- NOTE | 2024-11-14 08:19 | PROGRESS NOTE ---
Progress Note Dictate Providers to CC ~ Antibiotic Ordered?: N/A Subjective Subjective This morning, arousable and will mumble and try to communicate with me, not on BiPAP this morning, oxygen by nasal cannula, nurses report no new events since last evaluation, nitroglycerin infusion has been stopped, on oral medications blood pressure not at goal but certainly much improved from his initial evaluation Objective Vitals Vital Signs Date Time Temp Pulse Resp B/P (MAP) Pulse Ox O2 Delivery O2 Flow Rate FiO2 11/14/24 07:58 64 11/14/24 07:49 18 99 Nasal Cannula* 3 32 11/14/24 06:51 97.5 115/72 (86) general: Ill appearing, NAD, appears comfortable Neck: No JVD, or bruits CV: RRR w/o murmur, pulses 2+ symmetrical, 2+ edema Pulm: CTA Bilateral no wheezes Abd: + BS, NT Musc: Non-ambulatory, strength 4/5 in alll major muscle groups Lab Results: 11/13/24 0714 11/13/24 0714 Coagulation Studies Laboratory Tests Test 11/07/24 08:00 Prothrombin Time 10.9 SECONDS (9.0-12.0) INR International Normalized Ratio 1.1 INR Activated Partial Thromboplast Time 27 SECONDS (22-32) D-Dimer 3.68 MG/L FEU (0-0.50) H D-Dimer Comment Coagulation Comments Other Results I & O 11/14/24 07:00 Intake Total 680 ml Output Total 5100 ml Balance -4420 ml Intake Oral 500 ml Other 180 ml Output Urine Total 5100 ml # Bowel Movements 2 Problem\Assessment\Plan Problems/Diagnosis: (1) Hypertension Assessment & Plan: Nitroglycerin infusion was discontinued yesterday, recommend continuing losartan and amlodipine, would continue diuretics, goal blood pressure initially until seen in clinic 140/90 or less (2) CACHORRO (acute kidney injury) Assessment & Plan: BUN and creatinine were slowly increasing with aggressive diuresis, it has plateued at about 2.8, he is still very edematous, continue current diuretics for another day, will assess dailyWe need some dose of diuretics routinely (3) CKD (chronic kidney disease) Assessment & Plan: He has nephrotic range protienuria, evaluation in process (4) New onset of congestive heart failure Assessment & Plan: Optimize afterload reducers, and cautiously introduce guideline directed therapy as tolerated WALL,RONI M III DO Nov 14, 2024 08:19
[2024-11-14 08:21] LABS: ANTISTREPTOLYSIN O AB 483.9 IU/mL (0.0-200.0); COMPLEMENT C3, SERUM 61 mg/dL (82-167); COMPLEMENT C4, SERUM 33 mg/dL (12-38)
[2024-11-14 09:11] LABS: ANTINUCLEAR ANTIBODIES Negative (Negative)
[2024-11-14] MEDS: HYDROcodone/acetaminophen 5mg/325mg tablet PO PRN (10:08)
[2024-11-14 13:35] LABS: BASOPHILS # (AUTO) 0.1 X10'3 (0-0.2); BASOPHILS % (AUTO) 0.5 % (0-1); EOSINOPHILS # (AUTO) 0.1 X10'3 (0-0.9); EOSINOPHILS % (AUTO) 0.8 % (0-6); HEMATOCRIT 33.6 % (42.0-52.0); HEMOGLOBIN 11.5 g/dl (14.0-17.9); LYMPHOCYTES # (AUTO) 2.2 X10'3 (1.1-4.8); LYMPHOCYTES % (AUTO) 14.4 % (21-51); MEAN CORPUSCULAR HEMOGLOBIN 29.5 PG (27.0-31.0); MEAN CORPUSCULAR HGB CONC 34.3 g/dL (33.0-36.5); MEAN CORPUSCULAR VOLUME 86.1 FL (78-98); MEAN PLATELET VOLUME 6.4 FL (7.4-10.4); MONOCYTES # (AUTO) 1.4 X10'3 (0-0.9); MONOCYTES % (AUTO) 9.6 % (2-12); NEUTROPHILS # (AUTO) 11.2 X10'3 (1.8-7.7); NEUTROPHILS % (AUTO) 74.7 % (42-75); PLATELET COUNT 493 X10'3 (140-440); RED BLOOD COUNT 3.91 X10'6 (4.70-6.10); RED CELL DISTRIBUTION WIDTH 14.3 % (11.5-14.5)
[2024-11-14 13:49] LABS: ALANINE AMINOTRANSFERASE 42 U/L (12-78); ALBUMIN/GLOBULIN RATIO 0.5 (1.1-1.5); ALKALINE PHOSPHATASE 107 IU/L (46-116); ANION GAP 5 (8-16); ASPARTATE AMINO TRANSFERASE 51 U/L (10-37); BILIRUBIN,TOTAL 0.3 MG/DL (0.1-1.0); BLOOD UREA NITROGEN 93 MG/DL (7-18); BUN/CREATININE RATIO 33.9 (10.0-20.0); CALCIUM 8.4 MG/DL (8.5-10.1); CHLORIDE 104 MMOL/L (99-107); CREATININE 2.74 MG/DL (0.60-1.10); GLUCOSE 124 MG/DL (70-104); POTASSIUM 3.8 MMOL/L (3.5-5.1); SODIUM 143 MMOL/L (135-145); TOTAL CARBON DIOXIDE 33.7 MMOL/L (24-32); TOTAL PROTEIN 6.2 G/DL (6.4-8.2); eCRCL 25 ML/MIN; eGFR 24 ML/MIN
[2024-11-14] MEDS: hyDRALAzine 10mg tablet PO SCH (14:10)
[2024-11-14 15:22] LABS: TOTAL CELLS COUNTED 100
[2024-11-14 15:23] LABS: PLATELET ESTIMATE INCREASED
[2024-11-14] MEDS ORDERED: VANCOMYCIN LEVEL IV ONE (16:30)
--- NOTE | 2024-11-14 20:53 | PROGRESS NOTE ---
Daily Progress Note Providers to CC ~ Antibiotic Timeout Antibiotic Ordered?: Yes Subjective Patient was seen in presence of physical therapy team he is much more awake today as compared to yesterday. Currently on 3 L saturating 99%. Objective Vital Signs Date Time Temp Pulse Resp B/P (MAP) Pulse Ox O2 Delivery O2 Flow Rate FiO2 11/14/24 19:46 91 20 99 Nasal Cannula* 3 32 11/14/24 15:12 98.0 159/77 (104) Result Diagram: 11/14/24 1320 11/14/24 1320 General-patient not in any acute distress, chronically ill-appearing, obese, not lethargic HEENT-atraumatic normocephalic, neck supple without elevated JVD, no thyromegaly or carotid bruit. No lymphadenopathy bilaterally. Eyes-no icterus or pallor seen in eyes Chest-clear to auscultation bilaterally, breathing nonlabored no tachypnea, no wheezing, no crepitation, no crackles. Heart-S1-S2 normal, regular heart rate no murmur Abdomen bowel sounds positive on auscultation, soft nondistended nontender no guarding, no rigidity, signs of anasarca present over abdomen. Skin no active skin rash Neurology-grossly intact, nonfocal cooperated during physical examination Extremity- 1 plus pedal edema able to move all 4 extremities Coagulation Studies Laboratory Tests Test 11/07/24 08:00 Prothrombin Time 10.9 SECONDS (9.0-12.0) INR International Normalized Ratio 1.1 INR Activated Partial Thromboplast Time 27 SECONDS (22-32) D-Dimer 3.68 MG/L FEU (0-0.50) H D-Dimer Comment Coagulation Comments Problem\Assessment\Plan Hypertensive emergency, blood pressure on admission 187 over 103- improved , we will monitor Hyperkalemia, resolved. Chronic amphetamine abuse including currently, Acute amphetamine intoxication Chronic CHF diastolic in exacerbation ejection fraction 50-55%, E chocardiography completed Acute respiratory failure secondary to hypoxia. Bilateral pleural effusion right more than left- on IV Lasix which is tapered. V/Q test completed low probability for pulmonary embolism. Chronic tobacco abuse including currently Anemia hemoglobin 12 Multiple drug allergy- will monitor Acute Renal failure -Appreciate Dr. Barker consultation and recommendations COPD in exacerbation-SVN DuoNeb, incentive spirometry, Oxygen support therapy, intermittent BiPAP Chronic pain syndrome secondary to low back degenerative disc disease Diabetes mellitus type 2 , hemoglobin A1c 7.1, on hypoglycemia/Hyperglycemia sliding scale UTI culture showed no growth after two days. DVT gastropathy prophylaxis addressed Patient's current condition is guarded I will continue to follow patient in AM . Date of Service: Nov 14, 2024 Billing Provider: NELI RADFORD MD Common Visit Codes: [id number] INP/OBS CARE(HIGH) NELI RADFORD MD Nov 14, 2024 20:53
[2024-11-15] VITALS (9 sets, daily range): BP systolic 129–167; BP diastolic 72–89; PULSE 70–82; RESP 14–20; TEMP 97.7–98.1; O2SAT 95–99
[2024-11-15 05:51] LABS: HEPATITIS C VIRUS ANTIBODY Non Reactive (Non Reactive)
[2024-11-15 06:21] LABS: BASOPHILS % (AUTO) 0.3 % (0-1); EOSINOPHILS # (AUTO) 0.4 X10'3 (0-0.9); EOSINOPHILS % (AUTO) 2.9 % (0-6); HEMOGLOBIN 10.6 g/dl (14.0-17.9); LYMPHOCYTES # (AUTO) 2.5 X10'3 (1.1-4.8); LYMPHOCYTES % (AUTO) 18.2 % (21-51); MEAN CORPUSCULAR HEMOGLOBIN 28.5 PG (27.0-31.0); MEAN CORPUSCULAR HGB CONC 33.2 g/dL (33.0-36.5); MEAN PLATELET VOLUME 6.3 FL (7.4-10.4); MONOCYTES # (AUTO) 1.8 X10'3 (0-0.9); MONOCYTES % (AUTO) 13.5 % (2-12); NEUTROPHILS # (AUTO) 8.9 X10'3 (1.8-7.7); NEUTROPHILS % (AUTO) 65.1 % (42-75); PLATELET COUNT 449 X10'3 (140-440); RED BLOOD COUNT 3.72 X10'6 (4.70-6.10); RED CELL DISTRIBUTION WIDTH 13.9 % (11.5-14.5); WHITE BLOOD COUNT 13.7 X10'3 (4.5-11.0)
[2024-11-15 06:29] LABS: ALANINE AMINOTRANSFERASE 45 U/L (12-78); ALBUMIN/GLOBULIN RATIO 0.5 (1.1-1.5); ALKALINE PHOSPHATASE 94 IU/L (46-116); ANION GAP 4 (8-16); ASPARTATE AMINO TRANSFERASE 53 U/L (10-37); BILIRUBIN,TOTAL 0.2 MG/DL (0.1-1.0); BLOOD UREA NITROGEN 87 MG/DL (7-18); CALCIUM 8.3 MG/DL (8.5-10.1); CHLORIDE 101 MMOL/L (99-107); CREATININE 2.29 MG/DL (0.60-1.10); GLUCOSE 88 MG/DL (70-104); SODIUM 140 MMOL/L (135-145); TOTAL CARBON DIOXIDE 35.1 MMOL/L (24-32); TOTAL PROTEIN 5.7 G/DL (6.4-8.2); eCRCL 30 ML/MIN; eGFR 29 ML/MIN
[2024-11-15 08:34] LABS: PLATELET ESTIMATE INCREASED; TOTAL CELLS COUNTED 100
[2024-11-15] MEDS ORDERED: losartan 50mg tablet PO ONE (12:05)
[2024-11-15] MEDS: losartan 25mg tablet PO ONE (13:10)
[2024-11-15 13:28] LABS: ATYPICAL PANCA <1:20 titer (Neg:<1:20); CYTOPLASMIC (C-ANCA) <1:20 titer (Neg:<1:20); PERINUCLEAR (P-ANCA) <1:20 titer (Neg:<1:20)
--- NOTE | 2024-11-15 17:29 | PROGRESS NOTE ---
Progress Note Dictate Providers to CC ~ Antibiotic Ordered?: N/A Subjective Subjective Much improved from yesterday, more alert sitting up in bed able to respond, talk to hold conversation today, he has no specific complaints, shortness of breath is improved, nurses report no new events since last evaluation Objective Vitals Vital Signs Date Time Temp Pulse Resp B/P (MAP) Pulse Ox O2 Delivery O2 Flow Rate FiO2 11/15/24 16:25 70 16 98 Room Air 11/15/24 14:00 97.8 165/83 (110) 2.0 11/15/24 08:00 32 Lab Results: 11/15/24 0559 11/15/24 0559 Coagulation Studies Laboratory Tests Test 11/07/24 08:00 Prothrombin Time 10.9 SECONDS (9.0-12.0) INR International Normalized Ratio 1.1 INR Activated Partial Thromboplast Time 27 SECONDS (22-32) D-Dimer 3.68 MG/L FEU (0-0.50) H D-Dimer Comment Coagulation Comments Problem\Assessment\Plan Problems/Diagnosis: (1) Hypertension Assessment & Plan: Recommend continuing losartan and amlodipine, would continue diuretics, Increase losartan and amlodipine as tolerated to a goal blood pressure initially until seen in clinic 140/90 or less (2) CACHORRO (acute kidney injury) Assessment & Plan: BUN and creatinine were slowly increasing with aggressive diuresis, it has plateued at about 2.8, he is still very edematous, continue current diuretics for another day, will assess daily, he will need some dose of diuretics routinely, recommend furosemide 40 mg twice daily (3) CKD (chronic kidney disease) Assessment & Plan: He has nephrotic range protienuria, evaluation in process (4) New onset of congestive heart failure Assessment & Plan: Optimize afterload reducers, and cautiously introduce guideline directed therapy as tolerated RONI HADDAD III DO Nov 15, 2024 17:29
--- NOTE | 2024-11-15 20:32 | DISCHARGE SUMMARY ---
Discharge Summary Providers to CC ~ Discharge Summary Admission Diagnosis: COPD;CHF Hospital Course DATE OF ADMISSION: November 07, 2024 DATE OF DISCHARGE: November 15, 2024 CBC testing done on November 15, 2024 WBC 13.7 hemoglobin 10.6 hematocrit 32.0 platelet count 449. CMP done on November 15, 2024 sodium 140 potassium 4.0 creatinine 2.29 GFR 29 AST 53 rest of the liver enzymes unremarkable. Hemoglobin A1c 7.1, procalcitonin 0.19. Urine culture and blood culture showed no growth to date Patient had multiple diagnostic workup done during hospitalization which include CT head, x-ray chest, abdomen and pelvis CT, echocardiogram, chest CT, chest x- ray, lung scan NM please see details of all the results in EHR Discharge Diagnosis\\Comment: Hypertensive emergency Hyperkalemia, resolved. Chronic amphetamine abuse including currently, Acute amphetamine intoxication Chronic CHF diastolic in exacerbation ejection fraction 50-55%, Acute respiratory failure secondary to hypoxia. Bilateral pleural effusion right more than left Chronic tobacco abuse Anemia Multiple drug allergy Acute Renal failure COPD in exacerbation Chronic pain syndrome secondary to low back degenerative disc disease Diabetes mellitus type 2 , hemoglobin A1c 7.1, UTI Operations\\Procedures: None Consultants: Dr. Barker and Dr. Lucero Complications: None Condition on DC: Stable Discharge Summary: As per admitting provider's history and physical note " This is a 59 years old white male with history of multiple medical problems including seizure disorder COPD, hypoalbuminemia, chronic pain syndrome secondary to lumbar degenerative disc disease, history of homelessness, chronic kidney disease, diabetes mellitus type 2, chronic tobacco abuse including currently chronic amphetamine abuse including currently, history of hypertension poor control, CHF, morbid obesity BMI 40, multiple allergies, anemia hemoglobin 12, presented today to emergency department chief complaint shortness of breath, in addition Patient presents to the emergency room with shortness of breath. Patient states it has been gradually increasing to the point were he was completely out of breath just walking to go to the bathroom. No fevers. Has been using his inhaler with limited relief. Patient endorses methamphetamine abuse, in emergency department he was evaluated by physician was diagnosed with CHF in exacerbation, morbid obesity, hypoxia, and decision was made to admit patient for further evaluation and treatment, no additional complaint or concern. During hospitalization patient was treated for Hypertensive emergency, blood pressure on admission 187 over 103- improved , monitored closely Hyperkalemia, resolved. Chronic amphetamine abuse including currently, Acute amphetamine intoxication Chronic CHF diastolic in exacerbation ejection fraction 50-55%, Echocardiography completed Acute respiratory failure secondary to hypoxia. Bilateral pleural effusion right more than left- on IV Lasix which is tapered. V/Q test completed low probability for pulmonary embolism. Chronic tobacco abuse including currently Anemia hemoglobin 12 Multiple drug allergy- will monitor Acute Renal failure -Appreciate Dr. Barker and Dr. Lucero consultation and recommendations COPD in exacerbation-SVN DuoNeb, incentive spirometry, Oxygen support therapy, intermittent BiPAP Chronic pain syndrome secondary to low back degenerative disc disease Diabetes mellitus type 2 , hemoglobin A1c 7.1, on hypoglycemia/Hyperglycemia sliding scale UTI culture showed no growth after two days. Patient's clinical condition improved during hospitalization. He has been afebrile and getting discharged to rehab in stable condition. Patient is seen and examined on the day of discharge. Medication reconciliation done for rehab facility. General-patient not in any acute distress, chronically ill-appearing, obese, not lethargic HEENT-atraumatic normocephalic, neck supple without elevated JVD, no thyromegaly or carotid bruit. No lymphadenopathy bilaterally. Eyes-no icterus or pallor seen in eyes Chest-clear to auscultation bilaterally, breathing nonlabored no tachypnea, no wheezing, no crepitation, no crackles. Heart-S1-S2 normal, regular heart rate no murmur Abdomen bowel sounds positive on auscultation, soft nondistended nontender no guarding, no rigidity, signs of anasarca present over abdomen. Skin no active skin rash Neurology-grossly intact, nonfocal cooperated during physical examination Extremity- 1 plus pedal edema able to move all 4 extremities *Problems/Diagnosis: (1) Hypertension (2) CACHORRO (acute kidney injury) (3) CKD (chronic kidney disease) (4) New onset of congestive heart failure Status: Acute Total Time Spent on D/C: > 30 Minutes Date of Service: Nov 15, 2024 Billing Provider: NELI RADFORD MD Common Visit Codes: 37918-PAW/OBS DISCH DAY >30min NELI RADFORD MD Nov 15, 2024 20:30
[2024-11-16] MEDS ORDERED: losartan 50mg tablet PO SCH (08:00)
[2024-11-17 06:16] LABS: A/G RATIO 0.8 (0.7-1.7); ALBUMIN 2.4 g/dL (2.9-4.4); ALPHA-1-GLOBULIN 0.5 g/dL (0.0-0.4); BETA GLOBULIN 0.7 g/dL (0.7-1.3); GAMMA GLOBULIN 0.9 g/dL (0.4-1.8); GLOBULIN, TOTAL 3.2 g/dL (2.2-3.9); M-SPIKE Not Observed g/dL (Not Observed); PROTEIN, TOTAL, SERUM 5.6 g/dL (6.0-8.5)
[2024-11-18 08:11] LABS: ALBUMIN, UR Note: % (.); PROTEIN,TOTAL,URINE 203.2 mg/dL (Not Estab.)
== END 2024-11-15 18:20 | DRG 133 ==
LOC: ER 03:41 → ED HOLD 07:43 → PCU 3S 10:53
PROVIDERS: ADMIT Family Medicine; ATTEND Family Medicine
PROC: CB121ZZ Planar Nuclear Medicine Imaging of Lungs and Bronchi using Technetium 99m (Tc-99m) (ICD-10-PCS; 2024-11-07)
PROC: 5A09357 Assistance with Respiratory Ventilation, Less than 24 Consecutive Hours, Continuous Positive Airway Pressure (ICD-10-PCS; principal; 2024-11-09)
PROC: 5A0935A Assistance with Respiratory Ventilation, Less than 24 Consecutive Hours, High Flow/Velocity Cannula (ICD-10-PCS; 2024-11-10)
PROC: 5A09357 Assistance with Respiratory Ventilation, Less than 24 Consecutive Hours, Continuous Positive Airway Pressure (ICD-10-PCS; 2024-11-13)
PROC: 5A09357 Assistance with Respiratory Ventilation, Less than 24 Consecutive Hours, Continuous Positive Airway Pressure (ICD-10-PCS; 2024-11-14)
DX: J96.01 Acute respiratory failure with hypoxia (principal); I50.33 Acute on chronic diastolic (congestive) heart failure; N17.9 Acute kidney failure, unspecified; J44.1 Chronic obstructive pulmonary disease with (acute) exacerbation; E11.22 Type 2 diabetes mellitus with diabetic chronic kidney disease; D64.9 Anemia, unspecified; E87.5 Hyperkalemia; E66.01 Morbid (severe) obesity due to excess calories; Z20.822 Contact with and (suspected) exposure to COVID-19; I13.0 Hypertensive heart and chronic kidney disease with heart failure and stage 1 through stage 4 chronic kidney disease, or unspecified chronic kidney disease; M51.369 Other intervertebral disc degeneration, lumbar region without mention of lumbar back pain or lower extremity pain; F15.129 Other stimulant abuse with intoxication, unspecified; G40.909 Epilepsy, unspecified, not intractable, without status epilepticus; G89.4 Chronic pain syndrome; I16.1 Hypertensive emergency; N39.0 Urinary tract infection, site not specified; J43.9 Emphysema, unspecified; N18.9 Chronic kidney disease, unspecified; K59.09 Other constipation; Z68.41 Body mass index [BMI] 40.0-44.9, adult; Z88.0 Allergy status to penicillin; Z79.899 Other long term (current) drug therapy; Z88.6 Allergy status to analgesic agent; Z72.0 Tobacco use
CPT/HCPCS: 36415; 36600; 70450; 71045; 71250; 74176; 78582; 80048; 80053; 80061; 80164; 80202; 81001; 82570; 82803; 82948; 83036; 83605; 83735; 83880; 83930; 84100; 84145; 84155; 84156; 84165; 84166; 84300; 84439; 84443; 84484; 84540; 85007; 85018; 85025; 85379; 85610; 85730; 86038; 86060; 86160; 86256; 86803; 87040; 87081; 87088; 87207; 87340; 87522; 87811; 93005; 93306; 94640; 94660; 94760; 94799; 96374; 96375; 97161; 97530; 99285; A4615; A6222; A6223; A6250; A6258; A6446; A6449; A6590; A9539; A9540; G0378; J0456; J1644; J1815; J1938; J2270; J2919; J3360; J3370; J3490; J7030; J7040; J7050; J7512; Q0163

== ENCOUNTER 2024-12-25 17:34 | Emergency (ER) | payer MEDICAID ==
[~2024-12-25] VITALS: Ht 165.1 cm; Wt 96.0 kg
[~2024-12-25 17:34] MED LIST changes: -DIVA-81 PO; +ONDA-243 PO; -ONDA4TAB6 PO
--- NOTE | 2024-12-25 18:38 | Physician Documentation ---
History of Present Illness ~ Chief Complaint: Heat Related Stated Complaint: WEAKNESS Time Seen by MD: 18:12 Primary Medical Doctor: Paige Yee This is a 59-year-old male with history of CHF he presents by with generalized weakness and shortness of breath with exertion past four days, patient reports that he was hospitalized at [facility] for CHF exacerbation recently discharged, h owever he has lost his housing situation and is no longer welcome at the [facility] therefore has been walking in the heat the last four days. Patient reports that he has had poor oral intake. Patient reports no chest pain though reports some intermittent epigastric pain, reporting I think it is because I am not eating". Medication Reconciliation Allergies: Coded Allergies: Penicillins (Verified Allergy, Severe, PT STATES "WILL ", 11/07/24) aspirin (Verified Allergy, Mild, 02/20/15) Uncoded Allergies: sunflower seeds (Allergy, Intermediate, develops a rash, 09/22/12) Scheduled Clindamycin HCL* (Clindamycin HCL*), 1 CAP PO Q6H, (Reported) Divalproex Sodium DR* (Depakote DR*), 1 TAB PO Q6H, (Reported) Loratadine (Claritin), 10 MG PO DAILY, (Reported) Trazodone Hcl* (Trazodone Hcl*), 100 MG PO HS, (Reported) Scheduled PRN ONDANSETRON ODT 4mg tablet (Ondansetron Odt), 4 MG PO Q6H PRN for nausea/vomiting, (Reported) Past Medical History Past Medical History: Seizures, Asthma, COPD, Chronic Back Pain Past Surgical History: other Other Past Surgical History: Hemmorhoid Patient History: Patient reports no known family medical history. Alcohol Use: Occasionally Drug Use: methamphetamine Lives with: Family Lives In: Homeless Occupation: unemployed Review of Systems ROS Weakness and shortness of breath as stated above in the HPI, otherwise all systems are reviewed and negative. Physical Exam Vital Signs: Temperature: 98.2, Source: Oral, Heart Rate: 94, Respiratory Rate: 16, BP: 165/86, Pulse Oximetry: 94, Weight: 96.000 Oxygen Flow Rate: 0 Physical Exam VITALS: Reviewed and as above. GENERAL: Alert, disheveled, nontoxic appearing, no apparent distress. RESPIRATORY: No increased work of breathing, no respiratory distress, speaking in full clear sentences, lung sounds clear in all mustafa CV: Regular rate and rhythm no murmur BACK: No CVA tenderness GI: Soft, nontender, no rebound, no guarding, bowel sounds present Progress Results/Orders Results/Orders Orders - MARIETTA ALEJANDRA CLINICAL TRIAL LEADER Chest,Single View (12/25/24 18:27) Monitor (12/25/24 18:20) Saline Lock (12/25/24 18:20) Oxygen (12/25/24 18:20) Completed Orders - MARIETTA LAEJANDRA CLINICAL TRIAL LEADER Chest,Single View (12/25/24 18:27) Cbc/Diff (12/25/24 18:20) PBNP (12/25/24 18:20) Electrocardiogram (12/25/24 18:20) Hs Troponin I W Calculations (12/25/24 18:20) Hs Troponin I W Calculations (12/25/24 20:20) CMP (12/25/24 18:20) Normal Saline 1000ml (Sodium Chloride 10 (12/25/24 19:50) Medications Received in ER Medications (Trade) Dose Ordered Sig/[place] Route PRN Reason Start Time Stop Time Status Last Admin Dose Admin (sodium chloride 1000ml IV soln) 1,000 ml ONCE ONCE IVB 12/25/24 19:50 12/25/24 19:51 DC 12/25/24 20:05 1,000 ML Vital Signs 12/25/24 12/25/24 17:39 21:50 Temp 98.2 98.6 Pulse 94 89 Resp 16 18 B/P (MAP) 165/86 158/80 Pulse Ox 94 96 O2 Flow Rate 0 Laboratory Tests Test 12/25/24 18:38 12/25/24 20:40 White Blood Count 15.6 H Red Blood Count 3.78 L Hemoglobin 10.9 L Hematocrit 32.3 L Mean Corpuscular Volume 85.4 Mean Corpuscular Hemoglobin 28.9 Mean Corpuscular Hemoglobin Concent 33.8 Red Cell Distribution Width 15.4 H Platelet Count 425 Mean Platelet Volume 6.5 L Neutrophils (%) (Auto) 69.5 Lymphocytes (%) (Auto) 16.9 L Monocytes (%) (Auto) 12.0 Eosinophils (%) (Auto) 1.3 Basophils (%) (Auto) 0.3 Neutrophils # (Auto) 10.9 H Lymphocytes # (Auto) 2.6 Monocytes # (Auto) 1.9 H Eosinophils # (Auto) 0.2 Basophils # (Auto) 0.1 CBC Comment Sodium Level 133 L Potassium Level 4.2 Chloride Level 94 L Carbon Dioxide Level 25.4 Anion Gap 14 Blood Urea Nitrogen 83 H Creatinine 3.37 H Estimated GFR/1.73 m2 19 BUN/Creatinine Ratio 24.6 H Glucose Level 148 H Calcium Level 8.8 Total Bilirubin 0.6 Aspartate Amino Transf (AST/SGOT) 24 Alanine Aminotransferase (ALT/SGPT) 37 Alkaline Phosphatase 116 Troponin I High Sensitivity 8 10 Pro-B-Type Natriuretic Peptide 226 H Total Protein 7.8 Albumin 3.8 Globulin 4.0 Albumin/Globulin Ratio 1.0 L Chemistry Comments Troponin I High Sens Percent Delta 25 Troponin I Hi Sens Absolute Change 2 EKG/XRAY/CT/US/VASC/MRI EKG : Additional Comment EKG at 6:47 p.m. interpreted by myself as sinus rhythm with prolonged UT interval at a rate of 86, normal axis, no ST segment elevation or depression Chest X-Ray : Additional Comments EXAM: DI CHEST,SINGLE VIEW Indication: CP Technique: Single frontal view of the chest was obtained Comparison: DI CHEST,SINGLE VIEW on DOS: 11/08/24, DI CHEST,SINGLE VIEW on DOS: 11/07/24 FINDINGS: Lines and Tubes: None Lungs: No focal consolidation. Pleura: No effusion. No pneumothorax. Cardiomediastinal contours: Unremarkable Bones: No acute osseous abnormality. IMPRESSION: No acute cardiopulmonary disease. Electronically Signed by:MCKENZIE SOTO MD Date & Time: 12/25/241855 Dictated by: MCKENZIE SOTO MD Dictation date and time: 12/25/241855 I have reviewed and agree with the radiology report. I have reviewed and interpreted the imaging as: No focal consolidation or pneumothorax Medical Decision Making Findings This 59-year-old unhoused male with history of CKD and CHF presented due to weakness, of note patient has been living outside in outside temperature has been over 100 recently, examined labs were consistent with dehydration superimposed on chronic kidney disease. Due to patient's cardiac history ACS workup was initiated however EKG did not demonstrate evidence of dysrhythmia, ischemia, or infarction, and troponins not elevated. Patient's physical exam was benign without evidence of CHF exacerbation, dyspnea, or hypoxia. Patient was provided IV and oral rehydration reporting improvement in symptoms. Lab work did not demonstrate significant electrolyte or metabolic abnormality, given patient's chronic medical conditions lab work was at patient's baseline. Prior to discharge patient was able to tolerate oral intake. Patient is stable for outpatient follow up. Patient provided return to care precautions which she verbalized understanding of. Differential Dx:Considerations: Include: Electrolyte imbalance, Encephalopathy, Heat cramps, Heat exhaustion, Heat stoke, Heat syncope, Hypotension, Renal failure Departure Time of Disposition: 21:30 Disposition: HOME / SELF CARE / HOMELESS Impression: Primary Impression: Dehydration Additional Impressions: CKD (chronic kidney disease) Qualified Codes: N18.9 - Chronic kidney disease, unspecified Heat exposure Qualified Codes: T67.9XXA - Effect of heat and light, unspecified, initial encounter Condition: Improved Discharge Instructions: Dehydration, Adult, [id number], General Discharge Instructions Additional Instructions: While you have some chronic health conditions your lab work appeared to have improved since your last visit, suspect her symptoms are from exposure to the heat and dehydration, make sure your resting in the shade and drinking plenty of non caffeinated non alcoholic fluids, the [facility] does have cooling Centers available including the library which you may try to utilize during the day when as hottest. Please attempt to return to the [facility] as they may be able to provide you with services even if you are unable to stay there. Follow up with your primary care provider or the [facility] in the next few days. Please return to the emergency department for any new or worsening concerning symptoms. Referrals: NO PRIMARY CARE PROVIDER (PCP) Education Educated: Patient Educated regarding: diagnosis, treatment, prognosis, need for follow up Signature Scribe Signature: No scribe Attestation: The note accurately reflects work and decisions made by me.AMADO Roque 12/26/24 01:03 MARIETTA ALEJANDRA Dec 25, 2024 18:38
--- NOTE | 2024-12-25 18:48 | ELECTROCARDIOGRAPH REPORT ---
[facility] Test Date: 2024-12-25 Test Time: 18:47:16 Pat Name: SHNANON BACH Department: [facility]- Patient ID: [facility]-[id number] Room: Gender: M [employer] Manager: : 1965 Requested By: MARIETTA ALEJANDRA Order Number: [id number] Reading MD: Measurements Intervals [place] Rate: 86 P: 58 ND: 234 QRS: 51 QRSD: 101 T: 46 QT: 381 QTc: 456 Interpretive Statements Sinus rhythm Prolonged ND interval Probable left atrial enlargement Please click the below link to view image of tracing.
--- NOTE | 2024-12-25 18:58 | RADIOLOGY REPORT ---
EXAM: DI CHEST,SINGLE VIEW Indication: CP Technique: Single frontal view of the chest was obtained Comparison: DI CHEST,SINGLE VIEW on DOS: 11/08/24, DI CHEST,SINGLE VIEW on DOS: 11/07/24 FINDINGS: Lines and Tubes: None Lungs: No focal consolidation. Pleura: No effusion. No pneumothorax. Cardiomediastinal contours: Unremarkable Bones: No acute osseous abnormality. IMPRESSION: No acute cardiopulmonary disease.
[2024-12-25 18:59] LABS: BASOPHILS # (AUTO) 0.1 X10'3 (0-0.2); BASOPHILS % (AUTO) 0.3 % (0-1); EOSINOPHILS # (AUTO) 0.2 X10'3 (0-0.9); EOSINOPHILS % (AUTO) 1.3 % (0-6); HEMATOCRIT 32.3 % (42.0-52.0); HEMOGLOBIN 10.9 g/dl (14.0-17.9); LYMPHOCYTES # (AUTO) 2.6 X10'3 (1.1-4.8); LYMPHOCYTES % (AUTO) 16.9 % (21-51); MEAN CORPUSCULAR HEMOGLOBIN 28.9 PG (27.0-31.0); MEAN CORPUSCULAR HGB CONC 33.8 g/dL (33.0-36.5); MEAN CORPUSCULAR VOLUME 85.4 FL (78-98); MEAN PLATELET VOLUME 6.5 FL (7.4-10.4); MONOCYTES # (AUTO) 1.9 X10'3 (0-0.9); NEUTROPHILS # (AUTO) 10.9 X10'3 (1.8-7.7); NEUTROPHILS % (AUTO) 69.5 % (42-75); PLATELET COUNT 425 X10'3 (140-440); RED BLOOD COUNT 3.78 X10'6 (4.70-6.10); RED CELL DISTRIBUTION WIDTH 15.4 % (11.5-14.5); WHITE BLOOD COUNT 15.6 X10'3 (4.5-11.0)
[2024-12-25 19:28] LABS: ALANINE AMINOTRANSFERASE 37 U/L (12-78); ALBUMIN 3.8 G/DL (3.4-5.0); ALKALINE PHOSPHATASE 116 IU/L (46-116); ANION GAP 14 (8-16); ASPARTATE AMINO TRANSFERASE 24 U/L (10-37); BILIRUBIN,TOTAL 0.6 MG/DL (0.1-1.0); BLOOD UREA NITROGEN 83 MG/DL (7-18); BUN/CREATININE RATIO 24.6 (10.0-20.0); CALCIUM 8.8 MG/DL (8.5-10.1); CHLORIDE 94 MMOL/L (99-107); CREATININE 3.37 MG/DL (0.60-1.10); GLUCOSE 148 MG/DL (70-104); POTASSIUM 4.2 MMOL/L (3.5-5.1); PRO BRAIN NATRIURETIC PEPTIDE 226 PG/ML (0-125); SODIUM 133 MMOL/L (135-145); TOTAL CARBON DIOXIDE 25.4 MMOL/L (24-32); TOTAL PROTEIN 7.8 G/DL (6.4-8.2); eCRCL 20 ML/MIN; eGFR 19 ML/MIN
[2024-12-25] MEDS: normal saline 1000ML IV soln IVB ONE (20:05)
[2024-12-25 21:50] VITALS: BP 158/80; PULSE 89; RESP 18; TEMP 98.6; O2SAT 96
== END 2024-12-25 21:51 | disposition home or self-care (01) ==
LOC: ER 17:35
DX: E86.0 Dehydration (principal); T67.5XXA Heat exhaustion, unspecified, initial encounter; I50.9 Heart failure, unspecified; N18.9 Chronic kidney disease, unspecified; J44.9 Chronic obstructive pulmonary disease, unspecified; F15.90 Other stimulant use, unspecified, uncomplicated; Z88.0 Allergy status to penicillin; Z88.6 Allergy status to analgesic agent; Z59.00 Homelessness unspecified; Z79.899 Other long term (current) drug therapy; Z72.89 Other problems related to lifestyle; Z56.0 Unemployment, unspecified; X58.XXXA Exposure to other specified factors, initial encounter; Y93.89 Activity, other specified; Y92.89 Other specified places as the place of occurrence of the external cause; Y99.8 Other external cause status
CPT/HCPCS: 36415; 71045; 80053; 83880; 84484; 85025; 93005; 96360; 99285; J7030